=== PATIENT | male | born 1935 | race Asian ===

== ENCOUNTER 2016-10-08 15:47 | Inpatient (IN) | payer MEDICARE, OTHER ==
[~2016-10-08] VITALS: Ht 167.6 cm; Wt 62.1 kg
[2016-10-08 16:13] LABS: BASOPHILS % (AUTO) 0.2 % (0.0-2.0); EOSINOPHILS % (AUTO) 1.9 % (1.0-6.0); HEMATOCRIT 36.5 % (41-53); HEMOGLOBIN 11.6 g/dL (13.5-17.5); LYMPHOCYTES # (AUTO) 1.8 K/uL (1.0-4.8); LYMPHOCYTES % (AUTO) 18.2 % (22.0-44.0); MEAN CORPUSCULAR HEMOGLOBIN 27.6 pg (26.0-34.0); MEAN CORPUSCULAR HGB CONC 31.7 G/dL (31.0-37.0); MEAN CORPUSCULAR VOLUME 87 fL (80-100); MONOCYTES # (AUTO) 0.6 K/uL (0.1-1.0); MONOCYTES % (AUTO) 6.4 % (2.0-9.0); NEUTROPHILS # (AUTO) 7.2 K/uL (1.8-7.7); NEUTROPHILS % (AUTO) 73.3 % (40.0-70.0); PLATELET COUNT (AUTO) 308 K/uL (150-450); RED BLOOD CELL COUNT(AUTO) 4.19 MIL/uL (4.50-5.90); RED CELL DISTRIBUTION WIDTH 14.3 % (11.5-14.5); WHITE BLOOD COUNT (AUTO) 9.8 K/uL (4.5-11.0)
[2016-10-08 16:23] LABS: CALCIUM, TOTAL 7.7 mg/dL (8.8-10.5); CREATININE 1.32 mg/dL (0.60-1.30); POTASSIUM 4.3 mmol/L (3.5-5.1)
[2016-10-08 16:29] LABS: ALBUMIN 3.5 g/dL (3.4-5.0); BILIRUBIN,TOTAL 0.7 mg/dL (0.1-1.0); TOTAL PROTEIN, SERUM 7.3 g/dL (6.4-8.2)
[2016-10-08 18:37] LABS: GLUCOSE, URINE (UA) 250 mg/dL (NEGATIVE); KETONES,URINE 40 mg/dL (NEGATIVE); LEUKOCYTE ESTERASE ,URINE LARGE (NEGATIVE); OCCULT BLOOD,URINE LARGE (NEGATIVE); PROTEIN,URINE SEE CONFIRM (NEGATIVE)
[2016-10-08 18:47] LABS: ADD UA MICROSCOPIC YES; APPEARANCE,URINE BLOODY (CLEAR)
[2016-10-08 18:55] LABS: RBC,URINE Full Field /HPF (0-2); SULFOSALICYLIC ACID,URINE 4+ (Negative)
[2016-10-08] MEDS ORDERED: CefTRIAXone SODIUM 1 GM/VIAL IM ONE (19:15)
[2016-10-08] MEDS ORDERED: LIDOCAINE HCL/PF 1% 2 ML VIAL IM ONE (19:15)
[2016-10-08] MEDS ORDERED: TAMSULOSIN HCL 0.4 MG CAPSULE PO ONE (19:30)
[2016-10-08] MEDS ORDERED: CIPROFLOXACIN HCL 250 MG TABLET PO ONE (21:00)
[2016-10-08] MEDS ORDERED: SODIUM CHLORIDE 0.9% 1,000 ML IV ONE (21:23)
[2016-10-08] MEDS ORDERED: SODIUM CHLORIDE 0.9% 500 ML IV ONE (21:30)
[2016-10-08 21:54] LABS: INR 1.1 (0.9-1.1); PROTHROMBIN TIME 11.4 SEC (9.4-11.6)
[2016-10-08] MEDS ORDERED: ZOLPIDEM TARTRATE 5 MG TABLET PO PRN (23:00)
[2016-10-08] MEDS ORDERED: ACETAMINOPHEN 325 MG TABLET PO PRN (23:00)
[2016-10-08] MEDS ORDERED: OxyCODONE HCL/ACETAMINOPHEN 5-325 MG TABLET PO PRN (23:00)
[2016-10-08] MEDS ORDERED: ALBUTEROL SULFATE 2.5 MG/0.5 ML NEB SOLUTION NEB PRN (23:00)
[2016-10-08] MEDS ORDERED: ONDANSETRON HCL 4 MG/2 ML VIAL IVP PRN (23:00)
[2016-10-08] MEDS ORDERED: IPRATROPIUM BROMIDE 0.5 MG/2.5 ML NEB SOLUTION NEB PRN (23:00)
[2016-10-08] MEDS ORDERED: MORPHINE SULFATE 4 MG/ML SYRINGE IVP PRN (23:00)
[2016-10-08 23:04] VITALS: BP 126/79
[2016-10-08] MEDS ORDERED: PNEUMOCOCCAL VACCINE POLYVALENT 0.5 ML VIAL [PPSV23] IM ONE (23:45)
[2016-10-09] VITALS (7 sets, daily range): BP systolic 106–158; BP diastolic 61–77
[2016-10-09] MEDS: SODIUM CHLORIDE 0.9% 1,000 ML IV SCH ×3 (01:00→19:51)
[2016-10-09 06:43] LABS: EOSINOPHILS % (AUTO) 0.2 % (1.0-6.0); HEMOGLOBIN 9.3 g/dL (13.5-17.5); LYMPHOCYTES # (AUTO) 1.1 K/uL (1.0-4.8); LYMPHOCYTES % (AUTO) 9.1 % (22.0-44.0); MEAN CORPUSCULAR HEMOGLOBIN 27.6 pg (26.0-34.0); MEAN CORPUSCULAR VOLUME 86 fL (80-100); MONOCYTES # (AUTO) 0.7 K/uL (0.1-1.0); MONOCYTES % (AUTO) 5.4 % (2.0-9.0); NEUTROPHILS # (AUTO) 10.7 K/uL (1.8-7.7); PLATELET COUNT (AUTO) 264 K/uL (150-450); RED BLOOD CELL COUNT(AUTO) 3.36 MIL/uL (4.50-5.90); RED CELL DISTRIBUTION WIDTH 14.1 % (11.5-14.5); WHITE BLOOD COUNT (AUTO) 12.5 K/uL (4.5-11.0)
[2016-10-09 06:46] LABS: NEUTROPHILS % (AUTO) 85.3 % (40.0-70.0)
[2016-10-09 07:25] LABS: ALBUMIN 2.8 g/dL (3.4-5.0); BILIRUBIN,TOTAL 0.7 mg/dL (0.1-1.0); CALCIUM, TOTAL 6.8 mg/dL (8.8-10.5); CREATININE 1.37 mg/dL (0.60-1.30); MAGNESIUM 1.5 mg/dL (1.80-2.40); PHOSPHORUS 3.8 mg/dL (2.5-4.9); POTASSIUM 4.4 mmol/L (3.5-5.1); TOTAL PROTEIN, SERUM 5.7 g/dL (6.4-8.2)
[2016-10-09 07:53] LABS: PROSTATE SPECIFIC ANTIGEN 26.93 ng/mL (0.00-4.00)
[2016-10-09] MEDS: CefTRIAXone 1 GM/DEXTROSE 50 ML IV SCH (08:37)
[2016-10-09] MEDS: TAMSULOSIN HCL 0.4 MG CAPSULE PO SCH (08:42)
[2016-10-09] MEDS: PANTOPRAZOLE SODIUM 40 MG/VIAL IVP SCH (08:42)
[2016-10-09] MEDS ORDERED: MAGNESIUM SULFATE 1 GM in DEXTROSE 5%-WATER 50 ML IV ONE (13:00)
[2016-10-09] MEDS ORDERED: OPIUM/BELLADONNA ALK 60 MG-16.2 MG RECTAL SUPPOSITORY PR PRN (16:30)
[2016-10-09] MEDS ORDERED: SODIUM CHLORIDE 0.9% 100 ML ONE (16:44)
[2016-10-09] MEDS ORDERED: IOVERSOL 350 MG/ML 100 ML VIAL ONE (16:44)
[2016-10-09 20:00] LABS: BASOPHILS % (AUTO) 0.1 % (0.0-2.0); EOSINOPHILS % (AUTO) 0.2 % (1.0-6.0); HEMATOCRIT 23.8 % (41-53); HEMOGLOBIN 7.6 g/dL (13.5-17.5); LYMPHOCYTES # (AUTO) 0.8 K/uL (1.0-4.8); LYMPHOCYTES % (AUTO) 6.8 % (22.0-44.0); MEAN CORPUSCULAR HEMOGLOBIN 27.4 pg (26.0-34.0); MEAN CORPUSCULAR HGB CONC 31.8 G/dL (31.0-37.0); MEAN CORPUSCULAR VOLUME 86 fL (80-100); MONOCYTES # (AUTO) 0.8 K/uL (0.1-1.0); MONOCYTES % (AUTO) 6.2 % (2.0-9.0); NEUTROPHILS # (AUTO) 10.7 K/uL (1.8-7.7); NEUTROPHILS % (AUTO) 86.7 % (40.0-70.0); PLATELET COUNT (AUTO) 230 K/uL (150-450); RED BLOOD CELL COUNT(AUTO) 2.77 MIL/uL (4.50-5.90); RED CELL DISTRIBUTION WIDTH 14.4 % (11.5-14.5); WHITE BLOOD COUNT (AUTO) 12.3 K/uL (4.5-11.0)
[2016-10-10] VITALS (24 sets, daily range): BP systolic 90–166; BP diastolic 44–95
[2016-10-10] MEDS ORDERED: FentaNYL CITRATE-PF 100 MCG/2 ML VIAL IVP ONE (00:43)
[2016-10-10] MEDS ORDERED: PHENYLEPHRINE HCL 10 MG/ML VIAL IVP ONE (00:43)
[2016-10-10] MEDS ORDERED: LIDOCAINE HCL/PF 2% 5 ML VIAL IM ONE (00:43)
[2016-10-10] MEDS ORDERED: ONDANSETRON HCL 4 MG/2 ML VIAL IVP ONE (00:43)
[2016-10-10] MEDS ORDERED: MIDAZOLAM HCL 2 MG/2 ML VIAL IVP ONE (00:43)
[2016-10-10] MEDS ORDERED: DiphenhydrAMINE HCL 50 MG/ML VIAL IVP ONE (00:43)
[2016-10-10] MEDS: SODIUM CHLORIDE 0.9% 1,000 ML IV SCH ×2 (05:06→15:14)
[2016-10-10] MEDS ORDERED: SODIUM CHLORIDE 0.9% IRRIG BTL 1,000 ML IRRIG ONE (05:55)
[2016-10-10 07:30] LABS: EOSINOPHILS % (AUTO) 0.5 % (1.0-6.0); HEMATOCRIT 28.7 % (41-53); HEMOGLOBIN 9.3 g/dL (13.5-17.5); LYMPHOCYTES % (AUTO) 7.4 % (22.0-44.0); MEAN CORPUSCULAR HEMOGLOBIN 27.9 pg (26.0-34.0); MEAN CORPUSCULAR HGB CONC 32.3 G/dL (31.0-37.0); MEAN CORPUSCULAR VOLUME 87 fL (80-100); MONOCYTES % (AUTO) 7.8 % (2.0-9.0); NEUTROPHILS # (AUTO) 11.1 K/uL (1.8-7.7); NEUTROPHILS % (AUTO) 84.3 % (40.0-70.0); PLATELET COUNT (AUTO) 192 K/uL (150-450); RED BLOOD CELL COUNT(AUTO) 3.31 MIL/uL (4.50-5.90); RED CELL DISTRIBUTION WIDTH 13.7 % (11.5-14.5); WHITE BLOOD COUNT (AUTO) 13.2 K/uL (4.5-11.0)
[2016-10-10 07:43] LABS: ALBUMIN 2.5 g/dL (3.4-5.0); BILIRUBIN,TOTAL 1.3 mg/dL (0.1-1.0); CREATININE 2.53 mg/dL (0.60-1.30); POTASSIUM 4.7 mmol/L (3.5-5.1); TOTAL PROTEIN, SERUM 5.3 g/dL (6.4-8.2)
[2016-10-10] MEDS: TAMSULOSIN HCL 0.4 MG CAPSULE PO SCH (08:37)
[2016-10-10] MEDS: PANTOPRAZOLE SODIUM 40 MG/VIAL IVP SCH (08:37)
[2016-10-10] MEDS: CefTRIAXone 1 GM/DEXTROSE 50 ML IV SCH (08:37)
[2016-10-10] MEDS ORDERED: WATER FOR IRRIGATION STERILE IRRIG ONE ×2 (09:24→10:32)
[2016-10-10] MEDS ORDERED: SODIUM CL IRRIG SOLN BAG 3,000 ML IRRIG ONE (10:32)
[2016-10-10] MEDS ORDERED: SODIUM CHLORIDE 0.9% 1,000 ML IV ONE ×2 (16:00→19:13)
[2016-10-10] MEDS ORDERED: MEPERIDINE-PF 25 MG/ML SYRINGE IVP PRN (17:45)
[2016-10-10] MEDS ORDERED: HYDROmorphone 2 MG/ML SYRINGE IVP PRN (17:45)
[2016-10-10] MEDS ORDERED: FentaNYL CITRATE-PF 100 MCG/2 ML VIAL IVP PRN (17:45)
[2016-10-11] MEDS: OXYGEN THERAPY IH SCH ×3 (02:22→20:21)
[2016-10-11] MEDS: SODIUM CHLORIDE 0.9% 1,000 ML IV SCH ×3 (02:23→20:21)
[2016-10-11 04:56] VITALS: BP 96/54
[2016-10-11 07:21] VITALS: BP 90/50
[2016-10-11] MEDS: PANTOPRAZOLE SODIUM 40 MG/VIAL IVP SCH (08:09)
[2016-10-11] MEDS: CefTRIAXone 1 GM/DEXTROSE 50 ML IV SCH (08:12)
[2016-10-11 11:24] VITALS: BP 108/55
[2016-10-11 15:09] VITALS: BP 123/69
[2016-10-11 19:39] VITALS: BP 119/58
[2016-10-11 23:28] VITALS: BP 126/64
[2016-10-12] VITALS (24 sets, daily range): BP systolic 117–152; BP diastolic 58–81
[2016-10-12] MEDS: SODIUM CHLORIDE 0.9% 1,000 ML IV SCH ×2 (05:52→16:39)
[2016-10-12 06:16] LABS: EOSINOPHILS % (AUTO) 8.4 % (1.0-6.0); HEMATOCRIT 21.7 % (41-53); LYMPHOCYTES # (AUTO) 1.1 K/uL (1.0-4.8); LYMPHOCYTES % (AUTO) 8.3 % (22.0-44.0); MEAN CORPUSCULAR HEMOGLOBIN 28.5 pg (26.0-34.0); MEAN CORPUSCULAR VOLUME 89 fL (80-100); MONOCYTES # (AUTO) 1.1 K/uL (0.1-1.0); MONOCYTES % (AUTO) 8.4 % (2.0-9.0); NEUTROPHILS # (AUTO) 9.7 K/uL (1.8-7.7); NEUTROPHILS % (AUTO) 74.9 % (40.0-70.0); PLATELET COUNT (AUTO) 168 K/uL (150-450); RED BLOOD CELL COUNT(AUTO) 2.44 MIL/uL (4.50-5.90)
[2016-10-12 06:34] LABS: ALBUMIN 1.8 g/dL (3.4-5.0); BILIRUBIN,TOTAL 0.3 mg/dL (0.1-1.0); CALCIUM, TOTAL 6.6 mg/dL (8.8-10.5); CREATININE 1.22 mg/dL (0.60-1.30); POTASSIUM 4.4 mmol/L (3.5-5.1); TOTAL PROTEIN, SERUM 4.3 g/dL (6.4-8.2)
[2016-10-12] MEDS ORDERED: SODIUM CHLORIDE 0.9% 250 ML IV ONE (08:32)
[2016-10-12] MEDS: CefTRIAXone 1 GM/DEXTROSE 50 ML IV SCH (08:54)
[2016-10-12] MEDS: PANTOPRAZOLE SODIUM 40 MG/VIAL IVP SCH (08:54)
[2016-10-12] MEDS: OXYGEN THERAPY IH SCH ×2 (09:03→20:26)
[2016-10-12] MEDS ORDERED: 0.9% SODIUM CHLORIDE 10 ML SYRINGE IVP PRN (15:45)
[2016-10-12] MEDS ORDERED: SODIUM CHLORIDE 0.9% 100 ML ONE (15:53)
[2016-10-13] VITALS (7 sets, daily range): BP systolic 128–143; BP diastolic 69–83
[2016-10-13] MEDS: SODIUM CHLORIDE 0.9% 1,000 ML IV SCH ×3 (02:51→22:59)
[2016-10-13 06:41] LABS: ALANINE AMINOTRANSFERASE 11 U/L (12-78); ALBUMIN 1.8 g/dL (3.4-5.0); ANION GAP 7 mmol/L (8-16); ASPARTATE AMINOTRANSFERASE 16 U/L (15-37); BILIRUBIN,TOTAL 0.4 mg/dL (0.1-1.0); CALCIUM, TOTAL 7.3 mg/dL (8.8-10.5); CARBON DIOXIDE 23 mmol/L (22-29); CHLORIDE 112 mmol/L (98-107); CREATININE 1.03 mg/dL (0.60-1.30); GLOMERULAR FILTR. RATE CALC > 60 mL/min (>60); POTASSIUM 4.5 mmol/L (3.5-5.1); SODIUM SERUM 142 mmol/L (136-145); TOTAL PROTEIN, SERUM 4.7 g/dL (6.4-8.2); UREA NITROGEN, BLOOD 12 mg/dL (7-18)
[2016-10-13 06:45] LABS: BASOPHILS # (AUTO) 0.03 K/uL (0.00-0.20); BASOPHILS % (AUTO) 0.2 % (0.0-2.0); EOSINOPHILS # (AUTO) 1.03 K/uL (0.00-0.70); EOSINOPHILS % (AUTO) 8.98 % (1.0-6.0); HEMATOCRIT 29.3 % (41-53); HEMOGLOBIN 9.8 g/dL (13.5-17.5); LYMPHOCYTES # (AUTO) 1.2 K/uL (1.0-4.8); LYMPHOCYTES % (AUTO) 10.3 % (22.0-44.0); MEAN CORPUSCULAR HEMOGLOBIN 29.3 pg (26.0-34.0); MEAN CORPUSCULAR HGB CONC 33.5 G/dL (31.0-37.0); MEAN CORPUSCULAR VOLUME 87 fL (80-100); MONOCYTES # (AUTO) 0.8 K/uL (0.1-1.0); MONOCYTES % (AUTO) 6.9 % (2.0-9.0); NEUTROPHILS # (AUTO) 8.4 K/uL (1.8-7.7); NEUTROPHILS % (AUTO) 73.6 % (40.0-70.0); PLATELET COUNT (AUTO) 191 K/uL (150-450); RED BLOOD CELL COUNT(AUTO) 3.35 MIL/uL (4.50-5.90); RED CELL DISTRIBUTION WIDTH 15.1 % (11.5-14.5); WHITE BLOOD COUNT (AUTO) 11.4 K/uL (4.5-11.0)
[2016-10-13] MEDS: OXYGEN THERAPY IH SCH ×2 (08:24→20:58)
[2016-10-13] MEDS: PANTOPRAZOLE SODIUM 40 MG/VIAL IVP SCH (08:25)
[2016-10-13] MEDS: CefTRIAXone 1 GM/DEXTROSE 50 ML IV SCH (08:25)
[2016-10-14 04:18] VITALS: BP 136/68
[2016-10-14 06:18] LABS: BASOPHILS % (AUTO) 0.2 % (0.0-2.0); EOSINOPHILS % (AUTO) 10.6 % (1.0-6.0); HEMATOCRIT 30.3 % (41-53); HEMOGLOBIN 9.9 g/dL (13.5-17.5); LYMPHOCYTES # (AUTO) 0.9 K/uL (1.0-4.8); LYMPHOCYTES % (AUTO) 9.5 % (22.0-44.0); MEAN CORPUSCULAR HEMOGLOBIN 28.8 pg (26.0-34.0); MEAN CORPUSCULAR HGB CONC 32.5 G/dL (31.0-37.0); MEAN CORPUSCULAR VOLUME 89 fL (80-100); MONOCYTES # (AUTO) 0.8 K/uL (0.1-1.0); MONOCYTES % (AUTO) 8.1 % (2.0-9.0); NEUTROPHILS # (AUTO) 6.9 K/uL (1.8-7.7); NEUTROPHILS % (AUTO) 71.6 % (40.0-70.0); PLATELET COUNT (AUTO) 241 K/uL (150-450); RED BLOOD CELL COUNT(AUTO) 3.42 MIL/uL (4.50-5.90); WHITE BLOOD COUNT (AUTO) 9.6 K/uL (4.5-11.0)
[2016-10-14 06:39] LABS: ALANINE AMINOTRANSFERASE 13 U/L (12-78); ALBUMIN 1.9 g/dL (3.4-5.0); ANION GAP 5 mmol/L (8-16); ASPARTATE AMINOTRANSFERASE 17 U/L (15-37); BILIRUBIN,TOTAL 0.4 mg/dL (0.1-1.0); CALCIUM, TOTAL 7.6 mg/dL (8.8-10.5); CARBON DIOXIDE 26 mmol/L (22-29); CHLORIDE 111 mmol/L (98-107); CREATININE 1.02 mg/dL (0.60-1.30); GLOMERULAR FILTR. RATE CALC > 60 mL/min (>60); POTASSIUM 4.9 mmol/L (3.5-5.1); SODIUM SERUM 142 mmol/L (136-145); TOTAL PROTEIN, SERUM 4.8 g/dL (6.4-8.2); UREA NITROGEN, BLOOD 10 mg/dL (7-18)
[2016-10-14 07:32] VITALS: BP 130/65
[2016-10-14] MEDS: PANTOPRAZOLE SODIUM 40 MG/VIAL IVP SCH (09:00)
[2016-10-14] MEDS: CefTRIAXone 1 GM/DEXTROSE 50 ML IV SCH (09:00)
[2016-10-14] MEDS: SODIUM CHLORIDE 0.9% 1,000 ML IV SCH ×2 (09:02→20:02)
[2016-10-14 11:53] VITALS: BP 144/71
[2016-10-14 15:38] VITALS: BP 141/63
[2016-10-14 19:16] VITALS: BP 128/66
[2016-10-14 23:39] VITALS: BP 131/72
[2016-10-15 04:55] VITALS: BP 131/78
[2016-10-15] MEDS: SODIUM CHLORIDE 0.9% 1,000 ML IV SCH ×2 (06:22→20:02)
[2016-10-15 06:28] LABS: BASOPHILS % (AUTO) 0.2 % (0.0-2.0); EOSINOPHILS % (AUTO) 11.4 % (1.0-6.0); HEMATOCRIT 31.4 % (41-53); HEMOGLOBIN 10.1 g/dL (13.5-17.5); LYMPHOCYTES # (AUTO) 0.9 K/uL (1.0-4.8); LYMPHOCYTES % (AUTO) 10.5 % (22.0-44.0); MEAN CORPUSCULAR HEMOGLOBIN 28.4 pg (26.0-34.0); MEAN CORPUSCULAR HGB CONC 32.1 G/dL (31.0-37.0); MEAN CORPUSCULAR VOLUME 88 fL (80-100); MONOCYTES # (AUTO) 0.8 K/uL (0.1-1.0); MONOCYTES % (AUTO) 9.6 % (2.0-9.0); NEUTROPHILS % (AUTO) 68.3 % (40.0-70.0); PLATELET COUNT (AUTO) 289 K/uL (150-450); RED BLOOD CELL COUNT(AUTO) 3.55 MIL/uL (4.50-5.90); RED CELL DISTRIBUTION WIDTH 14.5 % (11.5-14.5); WHITE BLOOD COUNT (AUTO) 8.8 K/uL (4.5-11.0)
[2016-10-15 07:07] VITALS: BP 133/79
[2016-10-15 07:09] LABS: ALANINE AMINOTRANSFERASE 15 U/L (12-78); ALBUMIN 1.8 g/dL (3.4-5.0); ANION GAP 7 mmol/L (8-16); ASPARTATE AMINOTRANSFERASE 17 U/L (15-37); BILIRUBIN,TOTAL 0.3 mg/dL (0.1-1.0); CALCIUM, TOTAL 7.4 mg/dL (8.8-10.5); CARBON DIOXIDE 26 mmol/L (22-29); CHLORIDE 111 mmol/L (98-107); GLOMERULAR FILTR. RATE CALC > 60 mL/min (>60); POTASSIUM 4.4 mmol/L (3.5-5.1); SODIUM SERUM 144 mmol/L (136-145); TOTAL PROTEIN, SERUM 4.9 g/dL (6.4-8.2); UREA NITROGEN, BLOOD 8 mg/dL (7-18)
[2016-10-15] MEDS: CefTRIAXone 1 GM/DEXTROSE 50 ML IV SCH (08:36)
[2016-10-15] MEDS: PANTOPRAZOLE SODIUM 40 MG/VIAL IVP SCH (08:36)
[2016-10-15 11:35] VITALS: BP 137/78
[2016-10-15 15:36] VITALS: BP 123/65
[2016-10-15 19:48] VITALS: BP 134/69
[2016-10-15] MEDS: OXYGEN THERAPY IH SCH ×2 (20:05→20:07)
[2016-10-15 23:49] VITALS: BP 141/77
[2016-10-16 05:12] VITALS: BP 136/71
[2016-10-16] MEDS: SODIUM CHLORIDE 0.9% 1,000 ML IV SCH (05:46)
[2016-10-16 06:55] LABS: BASOPHILS % (AUTO) 0.1 % (0.0-2.0); EOSINOPHILS % (AUTO) 11.5 % (1.0-6.0); HEMOGLOBIN 10.4 g/dL (13.5-17.5); LYMPHOCYTES # (AUTO) 1.4 K/uL (1.0-4.8); LYMPHOCYTES % (AUTO) 14.5 % (22.0-44.0); MEAN CORPUSCULAR HEMOGLOBIN 28.6 pg (26.0-34.0); MEAN CORPUSCULAR HGB CONC 32.4 G/dL (31.0-37.0); MEAN CORPUSCULAR VOLUME 88 fL (80-100); MONOCYTES # (AUTO) 0.9 K/uL (0.1-1.0); MONOCYTES % (AUTO) 9.4 % (2.0-9.0); NEUTROPHILS # (AUTO) 6.4 K/uL (1.8-7.7); NEUTROPHILS % (AUTO) 64.5 % (40.0-70.0); PLATELET COUNT (AUTO) 326 K/uL (150-450); RED BLOOD CELL COUNT(AUTO) 3.63 MIL/uL (4.50-5.90); RED CELL DISTRIBUTION WIDTH 14.5 % (11.5-14.5); WHITE BLOOD COUNT (AUTO) 9.9 K/uL (4.5-11.0)
[2016-10-16 07:30] LABS: ALANINE AMINOTRANSFERASE 15 U/L (12-78); ALBUMIN 1.9 g/dL (3.4-5.0); ANION GAP 8 mmol/L (8-16); ASPARTATE AMINOTRANSFERASE 16 U/L (15-37); BILIRUBIN,TOTAL 0.3 mg/dL (0.1-1.0); CALCIUM, TOTAL 7.5 mg/dL (8.8-10.5); CARBON DIOXIDE 25 mmol/L (22-29); CHLORIDE 111 mmol/L (98-107); CREATININE 0.83 mg/dL (0.60-1.30); GLOMERULAR FILTR. RATE CALC > 60 mL/min (>60); POTASSIUM 4.2 mmol/L (3.5-5.1); SODIUM SERUM 144 mmol/L (136-145); TOTAL PROTEIN, SERUM 5.2 g/dL (6.4-8.2); UREA NITROGEN, BLOOD 9 mg/dL (7-18)
[2016-10-16] MEDS: OXYGEN THERAPY IH SCH (08:00)
[2016-10-16 08:09] VITALS: BP 137/69
[2016-10-16] MEDS: CefTRIAXone 1 GM/DEXTROSE 50 ML IV SCH (08:59)
[2016-10-16] MEDS: PANTOPRAZOLE SODIUM 40 MG/VIAL IVP SCH (08:59)
[2016-10-16 11:47] VITALS: BP 130/91
[2016-10-16 16:35] VITALS: BP 139/67
[2016-10-16] MEDS ORDERED: CIPR-278 PO ×2 (16:53→16:54)
[2016-10-18] MEDS ORDERED: SODIUM CL IRRIG SOLN BAG 3,000 ML IRRIG ONE (16:22)
== END 2016-10-16 18:20 | disposition home or self-care (01) | DRG 713 ==
LOC: EMS 15:48 → 5N 21:38 → 6N 10-13 05:40
PROVIDERS: ADMIT Internal Medicine; ATTEND Internal Medicine
PROC: 30233N1 Transfusion of Nonautologous Red Blood Cells into Peripheral Vein, Percutaneous Approach (ICD-10-PCS; 2016-10-09)
PROC: 0VB08ZZ Excision of Prostate, Via Natural or Artificial Opening Endoscopic (ICD-10-PCS; 2016-10-10)
PROC: 0TCB8ZZ Extirpation of Matter from Bladder, Via Natural or Artificial Opening Endoscopic (ICD-10-PCS; principal; 2016-10-10 17:15)
DX: C61 Malignant neoplasm of prostate (principal); N17.9 Acute kidney failure, unspecified; N39.0 Urinary tract infection, site not specified; N13.30 Unspecified hydronephrosis; N13.8 Other obstructive and reflux uropathy; E83.51 Hypocalcemia; R55 Syncope and collapse; N40.1 Benign prostatic hyperplasia with lower urinary tract symptoms; D64.9 Anemia, unspecified; F17.200 Nicotine dependence, unspecified, uncomplicated; I10 Essential (primary) hypertension; R33.8 Other retention of urine; E86.1 Hypovolemia; F10.20 Alcohol dependence, uncomplicated; R31.0 Gross hematuria; F45.8 Other somatoform disorders; Z71.6 Tobacco abuse counseling; Z71.41 Alcohol abuse counseling and surveillance of alcoholic
CPT/HCPCS: 51702; 71260; 72193; 74160; 83735; 84100; 84153; 86850; 86900; 86901; 86920; 87086; 88307; 93005; 96372; 99285; 99406; C9113; J0696; J1200; J2250; J2270; J2370; J2405; J3010; J3475; J3490; J7030; J7050; J7060; P9016

== ENCOUNTER 2022-04-19 20:10 | Emergency (ER) | payer MEDICARE, OTHER, MEDICAID ==
[~2022-04-19] VITALS: Ht 162.6 cm; Wt 62.0 kg
[~2022-04-19 20:10] MED LIST: CIPR-278 PO
[2022-04-19] MEDS ORDERED: IBUPROFEN 600 MG TABLET PO ONE (20:45)
[2022-04-19 21:12] LABS: COVID AG,FIA SOURCE NASOPHARYNGEAL
[2022-04-19 21:33] LABS: RAPID GROUP A STREP NEGATIVE (NEGATIVE)
[2022-04-19 21:38] LABS: INFLUENZA TYPE A NEGATIVE FOR TYPE A (NEGATIVE); INFLUENZA TYPE B NEGATIVE FOR TYPE B (NEGATIVE)
[2022-04-19 21:52] VITALS: BP 142/57
== END 2022-04-19 22:32 | disposition home or self-care (01) ==
LOC: EMS 20:12
DX: B34.9 Viral infection, unspecified (principal); F10.20 Alcohol dependence, uncomplicated; N40.0 Benign prostatic hyperplasia without lower urinary tract symptoms; F17.210 Nicotine dependence, cigarettes, uncomplicated; Z20.822 Contact with and (suspected) exposure to COVID-19
CPT/HCPCS: 71045; 87430; 87804; 99284; 36415-L1; 36415-TC

== ENCOUNTER 2022-11-29 10:42 | Day surgery (SDC) | payer MEDICARE, OTHER ==
[~2022-11-29 10:42] MED LIST changes: +AMLO-257 PO; +AMOX1TAB16 PO; -CIPR-278 PO
[2022-11-29] MEDS ORDERED: PROPOFOL 1% 20 ML VIAL IVP ONE (10:43)
[2022-11-29] MEDS ORDERED: ONDANSETRON HCL 4 MG/2 ML VIAL IVP ONE (10:43)
[2022-11-29] MEDS ORDERED: FentaNYL CITRATE PF 100 MCG/2 ML VIAL IVP ONE (10:43)
[2022-11-29] MEDS ORDERED: DEXAMETHASONE SOD PHOS 4 MG/ML VIAL IVP ONE (10:43)
[2022-11-29] MEDS ORDERED: ROCURONIUM BROMIDE 10 MG/ML 5 ML VIAL IVP ONE (10:43)
[2022-11-29] MEDS ORDERED: LIDOCAINE/PF 2% 5 ML VIAL IM ONE (10:43)
[2022-11-29] MEDS ORDERED: 0.9% SODIUM CHLORIDE 10 ML VIAL IVP ONE (10:43)
[2022-11-29] MEDS ORDERED: SODIUM CHLORIDE 0.9% 1,000 ML ONE (11:00)
[2022-11-29] MEDS ORDERED: SODIUM CHLORIDE 0.9% 1,000 ML IV ONE (13:00)
[2022-11-29] MEDS ORDERED: IOTHALAMATE MEGLUMINE 600 MG/ML 50 ML VIAL IVP ONE (14:52)
== END 2022-11-29 16:00 | disposition home or self-care (01) ==
LOC: SURGERY 10:42
PROVIDERS: ATTEND Internal Medicine Gastroenterology
DX: K80.50 Calculus of bile duct without cholangitis or cholecystitis without obstruction (principal); Z72.89 Other problems related to lifestyle; Z79.899 Other long term (current) drug therapy
CPT/HCPCS: 43265; 43275; 88300; C1769 ×2; J2704; J1100; J3010; Q9961; J3490 ×2; J2405; J7030

== ENCOUNTER 2022-11-30 17:08 | Inpatient (IN) | payer MEDICARE, OTHER ==
[~2022-11-30] VITALS: Ht 167.6 cm; Wt 62.7 kg
[2022-11-30 18:02] LABS: HEMATOCRIT 44.1 % (41-53); HEMOGLOBIN 13.9 g/dL (13.5-17.5); MEAN CORPUSCULAR HEMOGLOBIN 27.5 pg (26.0-34.0); MEAN CORPUSCULAR HGB CONC 31.6 G/dL (31.0-37.0); MEAN CORPUSCULAR VOLUME 87 fL (80-100); PLATELET COUNT (AUTO) 266 K/uL (150-450); RED BLOOD CELL COUNT(AUTO) 5.07 MIL/uL (4.50-5.90); RED CELL DISTRIBUTION WIDTH 13.6 % (11.5-14.5)
[2022-11-30 18:10] LABS: ANION GAP 12 mmol/L (8-16); CALCIUM, TOTAL 8.1 mg/dL (8.8-10.5); CARBON DIOXIDE 21 mmol/L (22-29); CHLORIDE 103 mmol/L (98-107); CREATININE 1.43 mg/dL (0.60-1.30); GLOMERULAR FILTR. RATE CALC 47 mL/min (>60); GLUCOSE,RANDOM 154 mg/dL (70-110); SODIUM SERUM 136 mmol/L (136-145)
[2022-11-30] MEDS ORDERED: 0.9% SODIUM CHLORIDE 10 ML SYRINGE IVP PRN (18:15)
[2022-11-30] MEDS ORDERED: SODIUM CHLORIDE 0.9% 1,350 ML IV ONE (18:15)
[2022-11-30 18:21] LABS: LACTIC ACID 3.6 mmol/L (0.4-2.0)
[2022-11-30 18:23] LABS: ALANINE AMINOTRANSFERASE 13 U/L (12-78); ALBUMIN 3.2 g/dL (3.4-5.0); ALKALINE PHOSPHATASE 54 U/L (46-116); ASPARTATE AMINOTRANSFERASE 18 U/L (15-37); BILIRUBIN,TOTAL 1.4 mg/dL (0.1-1.0); TOTAL PROTEIN, SERUM 6.8 g/dL (6.4-8.2)
[2022-11-30 18:25] LABS: INR 1.1 (0.9-1.1); PROTHROMBIN TIME 11.4 SEC (9.4-11.6)
[2022-11-30 18:29] LABS: BAND NEUTROPHILS % (MANUAL) 26 % (0-5); LYMPHOCYTES % (MANUAL) 4 % (22-44); MONOCYTES % (MANUAL) 3 % (2-9); SEGMENTED NEUTROPHILS % 67 % (40-70)
[2022-11-30 18:30] LABS: LIPASE 4857 U/L (73-393)
[2022-11-30] MEDS ORDERED: ACETAMINOPHEN 325 MG TABLET PO PRN (19:00)
[2022-11-30] MEDS ORDERED: ONDANSETRON HCL 4 MG/2 ML VIAL IVP PRN (19:00)
[2022-11-30] MEDS ORDERED: PIPERACILLIN SODIUM/TAZOBACTAM 2.25 GM in DEXTROSE 5%-WATER 50 ML IV SCH (19:00)
[2022-11-30 19:04] LABS: COVID AG,FIA SOURCE NASOPHARYNGEAL
[2022-11-30] MEDS: SODIUM CHLORIDE 0.9% 1,000 ML IV SCH (19:44)
[2022-11-30] MEDS: MORPHINE SULFATE 2 MG/ML SYRINGE IVP PRN (20:14)
[2022-11-30] MEDS: DOCUSATE SODIUM 100 MG CAPSULE PO SCH (21:00)
[2022-11-30 21:02] LABS: APPEARANCE,URINE CLEAR (CLEAR); BILIRUBIN,URINE NEGATIVE (NEGATIVE); GLUCOSE, URINE (UA) NEGATIVE (NEGATIVE); KETONES,URINE NEGATIVE (NEGATIVE); LEUKOCYTE ESTERASE ,URINE NEGATIVE (NEGATIVE); NITRATE,URINE NEGATIVE (NEGATIVE); OCCULT BLOOD,URINE TRACE (NEGATIVE); PH,URINE 5.5 (5.0-8.0); PROTEIN,URINE 30-70 mg/dL (NEGATIVE); SPECIFIC GRAVITIY, URINE 1.025 (1.003-1.030); UROBILINOGEN,URINE <=1.0 mg/dL (<=1.0)
[2022-11-30 21:11] LABS: BACTERIA,URINE None Seen /HPF (None Seen); RBC,URINE 0-2 /HPF (0-2); WBC,URINE 0-2 /HPF (0-5)
[2022-11-30] MEDS ORDERED: HYDROmorphone HCL 2 MG/ML SYRINGE IVP ONE (22:15)
[2022-11-30] MEDS: HEPARIN SODIUM,PORCINE 5,000 UNITS/ML VIAL SQ SCH (23:02)
[2022-11-30] MEDS ORDERED: MEBROFENIN TC99M/MCL ISOTOPE 1 EA INJ INJ ONE (23:55)
[2022-12-01] MEDS: PIPERACILLIN SODIUM/TAZOBACTAM 2.25 GM in DEXTROSE 5%-WATER 50 ML IV SCH ×4 (01:16→18:25)
[2022-12-01] MEDS: SODIUM CHLORIDE 0.9% 1,000 ML IV SCH ×3 (01:32→16:45)
[2022-12-01] MEDS ORDERED: ACETAMINOPHEN 1000 MG/ISO-OSM 100 ML IV ONE (03:00)
[2022-12-01 04:51] LABS: HEMATOCRIT 39.8 % (41-53); HEMOGLOBIN 12.9 g/dL (13.5-17.5); MEAN CORPUSCULAR HEMOGLOBIN 28.4 pg (26.0-34.0); MEAN CORPUSCULAR HGB CONC 32.5 G/dL (31.0-37.0); MEAN CORPUSCULAR VOLUME 88 fL (80-100); PLATELET COUNT (AUTO) 211 K/uL (150-450); RED BLOOD CELL COUNT(AUTO) 4.54 MIL/uL (4.50-5.90)
[2022-12-01 05:05] LABS: ALBUMIN 2.3 g/dL (3.4-5.0); BILIRUBIN,TOTAL 1.6 mg/dL (0.1-1.0); CALCIUM, TOTAL 6.8 mg/dL (8.8-10.5); CREATININE 1.38 mg/dL (0.60-1.30); POTASSIUM 4.3 mmol/L (3.5-5.1); TOTAL PROTEIN, SERUM 5.4 g/dL (6.4-8.2)
[2022-12-01 05:19] LABS: BAND NEUTROPHILS % (MANUAL) 22 % (0-5); EOSINOPHILS % (MANUAL) 3 % (1-6); LYMPHOCYTES % (MANUAL) 10 % (22-44); MONOCYTES % (MANUAL) 4 % (2-9); SEGMENTED NEUTROPHILS % 61 % (40-70)
[2022-12-01] MEDS: HEPARIN SODIUM,PORCINE 5,000 UNITS/ML VIAL SQ SCH ×3 (07:04→23:07)
[2022-12-01] MEDS: DOCUSATE SODIUM 100 MG CAPSULE PO SCH ×2 (09:00→20:12)
[2022-12-01] MEDS: PANTOPRAZOLE SODIUM 40 MG/VIAL IVP SCH (10:16)
[2022-12-01 10:20] VITALS: BP 163/96
[2022-12-01] MEDS: MORPHINE SULFATE 2 MG/ML SYRINGE IVP PRN (11:15)
[2022-12-01 11:31] VITALS: BP 161/101
[2022-12-01] MEDS ORDERED: HYDROmorphone HCL 2 MG/ML SYRINGE IM PRN (12:30)
[2022-12-01 15:26] VITALS: BP 144/74
[2022-12-01] MEDS: HYDROmorphone HCL 2 MG/ML SYRINGE IVP PRN ×2 (15:47→20:09)
[2022-12-01] MEDS: OCTREOTIDE ACETATE 100 MCG/ML VIAL IVP SCH ×2 (15:49→20:08)
[2022-12-01 18:53] LABS: ABG BASE EXCESS -9.6 mmol/L (-2.0-3.0); ABG HCO3 17.8 mmol/L (22.0-26.0); ABG METHEMOGLOBIN 0.3 % (0.0-1.5); ABG OXYGEN CONTENT 18.3 mL/dL (15.0-23.0); ABG OXYGEN SATURATION 94.2 % (95.0-98.0); ABG PCO2 32 mmHg (35-45); ABG PH 7.328 (7.35-7.450); PO2, ARTERIAL BG 76.6 mmHg (71.0-79.0); SOURCE, BLOOD GAS ARTERIAL
[2022-12-01 18:54] LABS: ABG A-A DIFF O2 142.4 mmHg (10-20.0); O2 DEVICE,BLOOD GAS NASAL CANNULA (ROOM AIR); SITE, BLOOD GAS RT RADIAL
[2022-12-01 20:13] VITALS: BP 139/81
[2022-12-01] MEDS: ACETAMINOPHEN 650 MG/ISO-OSM 65 ML IV PRN (23:10)
[2022-12-01 23:24] VITALS: BP 133/74
[2022-12-02] MEDS: SODIUM CHLORIDE 0.9% 1,000 ML IV SCH ×3 (00:14→20:28)
[2022-12-02] MEDS: PIPERACILLIN SODIUM/TAZOBACTAM 2.25 GM in DEXTROSE 5%-WATER 50 ML IV SCH ×4 (00:15→22:49)
[2022-12-02] MEDS: HYDROmorphone HCL 2 MG/ML SYRINGE IVP PRN ×3 (04:55→23:42)
[2022-12-02 05:06] VITALS: BP 153/90
[2022-12-02 06:40] LABS: HEMATOCRIT 40.2 % (41-53); HEMOGLOBIN 12.9 g/dL (13.5-17.5); MEAN CORPUSCULAR HEMOGLOBIN 28.6 pg (26.0-34.0); MEAN CORPUSCULAR HGB CONC 32.1 G/dL (31.0-37.0); MEAN CORPUSCULAR VOLUME 89 fL (80-100); RED BLOOD CELL COUNT(AUTO) 4.51 MIL/uL (4.50-5.90); RED CELL DISTRIBUTION WIDTH 14.1 % (11.5-14.5)
[2022-12-02 06:57] LABS: ALBUMIN 2.3 g/dL (3.4-5.0); CALCIUM, TOTAL 7.3 mg/dL (8.8-10.5); CREATININE 1.65 mg/dL (0.60-1.30); POTASSIUM 4.3 mmol/L (3.5-5.1)
[2022-12-02 07:17] LABS: PLATELET COUNT (AUTO) 185 K/uL (150-450)
[2022-12-02 07:24] LABS: BAND NEUTROPHILS % (MANUAL) 63 % (0-5); LYMPHOCYTES % (MANUAL) 15 % (22-44); METAMYELOCYTES % 1 % (0-0); MONOCYTES % (MANUAL) 6 % (2-9); SEGMENTED NEUTROPHILS % 15 % (40-70)
[2022-12-02 07:36] VITALS: BP 128/66
[2022-12-02] MEDS: HEPARIN SODIUM,PORCINE 5,000 UNITS/ML VIAL SQ SCH ×2 (08:00→16:55)
[2022-12-02] MEDS ORDERED: RINGERS SOLUTION,LACTATED 500 ML IV ONE (08:00)
[2022-12-02] MEDS: PANTOPRAZOLE SODIUM 40 MG/VIAL IVP SCH (08:55)
[2022-12-02] MEDS: OCTREOTIDE ACETATE 100 MCG/ML VIAL IVP SCH ×3 (08:56→20:48)
[2022-12-02] MEDS: DOCUSATE SODIUM 100 MG CAPSULE PO SCH ×2 (08:56→20:21)
[2022-12-02 11:24] VITALS: BP 149/72
[2022-12-02 15:47] VITALS: BP 162/76
[2022-12-02 17:31] LABS: CREATININE,URINE RANDOM 71.1 mg/dL (30.0-125.0)
[2022-12-02 17:33] LABS: CALCIUM, TOTAL 7.6 mg/dL (8.8-10.5); CREATININE 1.49 mg/dL (0.60-1.30); MAGNESIUM 1.8 mg/dL (1.80-2.40); PHOSPHORUS 2.6 mg/dL (2.5-4.9)
[2022-12-02] MEDS: ACETAMINOPHEN 650 MG/ISO-OSM 65 ML IV PRN (18:15)
[2022-12-02 20:53] VITALS: BP 158/88
[2022-12-03] VITALS (7 sets, daily range): BP systolic 149–166; BP diastolic 5–88
[2022-12-03] MEDS: SODIUM CHLORIDE 0.9% 1,000 ML IV SCH ×2 (04:36→12:34)
[2022-12-03] MEDS: PIPERACILLIN SODIUM/TAZOBACTAM 2.25 GM in DEXTROSE 5%-WATER 50 ML IV SCH ×3 (05:47→17:01)
[2022-12-03] MEDS ORDERED: HydrALAZINE HCL 20 MG/ML VIAL IVP ONE (06:00)
[2022-12-03] MEDS: FUROSEMIDE 40 MG/4 ML VIAL IVP SCH ×2 (06:58→09:11)
[2022-12-03 07:01] LABS: BASOPHILS % (AUTO) 0.1 % (0.0-2.0); EOSINOPHILS % (AUTO) 0.1 % (1.0-6.0); LYMPHOCYTES # (AUTO) 0.8 K/uL (1.0-4.8); LYMPHOCYTES % (AUTO) 7.4 % (22.0-44.0); MEAN CORPUSCULAR HEMOGLOBIN 27.8 pg (26.0-34.0); MEAN CORPUSCULAR HGB CONC 31.1 G/dL (31.0-37.0); MEAN CORPUSCULAR VOLUME 89 fL (80-100); MONOCYTES # (AUTO) 0.5 K/uL (0.1-1.0); MONOCYTES % (AUTO) 4.4 % (2.0-9.0); NEUTROPHILS # (AUTO) 9.5 K/uL (1.8-7.7); PLATELET COUNT (AUTO) 214 K/uL (150-450); RED BLOOD CELL COUNT(AUTO) 4.69 MIL/uL (4.50-5.90); RED CELL DISTRIBUTION WIDTH 14.5 % (11.5-14.5)
[2022-12-03 07:14] LABS: ALBUMIN 2.4 g/dL (3.4-5.0); BILIRUBIN,TOTAL 0.7 mg/dL (0.1-1.0); CALCIUM, TOTAL 8.2 mg/dL (8.8-10.5); CREATININE 1.46 mg/dL (0.60-1.30); POTASSIUM 3.7 mmol/L (3.5-5.1); TOTAL PROTEIN, SERUM 6.7 g/dL (6.4-8.2)
[2022-12-03] MEDS: IPRATROPIUM BROMIDE 0.5 MG/2.5 ML NEB SOLUTION NEB SCH ×5 (07:45→23:11)
[2022-12-03] MEDS: ALBUTEROL SULFATE 2.5 MG/0.5 ML NEB SOLUTION NEB SCH ×5 (07:45→23:11)
[2022-12-03 08:52] LABS: MAGNESIUM 2.1 mg/dL (1.80-2.40); PHOSPHORUS 2.8 mg/dL (2.5-4.9)
[2022-12-03] MEDS: DOCUSATE SODIUM 100 MG CAPSULE PO SCH ×2 (09:00→20:32)
[2022-12-03] MEDS: PANTOPRAZOLE SODIUM 40 MG/VIAL IVP SCH (09:11)
[2022-12-03] MEDS: HEPARIN SODIUM,PORCINE 5,000 UNITS/ML VIAL SQ SCH ×3 (09:11→16:31)
[2022-12-03] MEDS: OCTREOTIDE ACETATE 100 MCG/ML VIAL IVP SCH ×3 (09:12→20:38)
[2022-12-03 12:20] LABS: ABG BASE EXCESS -12.2 mmol/L (-2.0-3.0); ABG CARBOXYHEMOGLOBIN 0.7 % (0.0-1.5); ABG HCO3 16.6 mmol/L (22.0-26.0); ABG METHEMOGLOBIN 0.2 % (0.0-1.5); ABG OXYGEN CONTENT 18.3 mL/dL (15.0-23.0); ABG OXYGEN SATURATION 93.8 % (95.0-98.0); ABG PCO2 22 mmHg (35-45); ABG PH 7.382 (7.35-7.450); PO2, ARTERIAL BG 66.5 mmHg (71.0-79.0); SOURCE, BLOOD GAS ARTERIAL; TEMPERATURE, FAHRENHEIT, BG 98.2 FAHREN (96.0-98.6)
[2022-12-03 12:26] LABS: ABG A-A DIFF O2 135.7 mmHg (10-20.0); O2 DEVICE,BLOOD GAS CANNULA (ROOM AIR); SITE, BLOOD GAS LFT RADIAL
[2022-12-03] MEDS: DEXTROSE 5%-0.45% SODIUM CHL 1,000 ML IV SCH (16:31)
[2022-12-04] MEDS: HEPARIN SODIUM,PORCINE 5,000 UNITS/ML VIAL SQ SCH ×4 (00:39→23:37)
[2022-12-04] MEDS: PIPERACILLIN SODIUM/TAZOBACTAM 2.25 GM in DEXTROSE 5%-WATER 50 ML IV SCH ×5 (00:42→23:38)
[2022-12-04] MEDS: DEXTROSE 5%-0.45% SODIUM CHL 1,000 ML IV SCH (01:45)
[2022-12-04 04:28] VITALS: BP 149/77
[2022-12-04] MEDS: ALBUTEROL SULFATE 2.5 MG/0.5 ML NEB SOLUTION NEB SCH ×6 (05:46→23:09)
[2022-12-04] MEDS: IPRATROPIUM BROMIDE 0.5 MG/2.5 ML NEB SOLUTION NEB SCH ×6 (05:46→23:09)
[2022-12-04 07:24] LABS: HEMATOCRIT 36.6 % (41-53); HEMOGLOBIN 11.7 g/dL (13.5-17.5); MEAN CORPUSCULAR HEMOGLOBIN 27.6 pg (26.0-34.0); MEAN CORPUSCULAR VOLUME 86 fL (80-100); PLATELET COUNT (AUTO) 159 K/uL (150-450); RED BLOOD CELL COUNT(AUTO) 4.25 MIL/uL (4.50-5.90)
[2022-12-04 07:31] LABS: ALBUMIN 2.1 g/dL (3.4-5.0); CALCIUM, TOTAL 7.9 mg/dL (8.8-10.5); CREATININE 1.54 mg/dL (0.60-1.30); TOTAL PROTEIN, SERUM 5.8 g/dL (6.4-8.2)
[2022-12-04 07:37] LABS: POTASSIUM 2.7 mmol/L (3.5-5.1)
[2022-12-04 07:47] LABS: BAND NEUTROPHILS % (MANUAL) 24 % (0-5); LYMPHOCYTES % (MANUAL) 18 % (22-44); MONOCYTES % (MANUAL) 1 % (2-9); SEGMENTED NEUTROPHILS % 57 % (40-70)
[2022-12-04] MEDS ORDERED: POTASSIUM CHL 10 MEQ/WATER 50 ML IV SCH (08:15)
[2022-12-04 08:17] VITALS: BP 141/74
[2022-12-04] MEDS: POTASSIUM CHL 10 MEQ/WATER 50 ML IV SCH ×4 (08:45→12:38)
[2022-12-04] MEDS: PANTOPRAZOLE SODIUM 40 MG/VIAL IVP SCH (09:09)
[2022-12-04] MEDS: DOCUSATE SODIUM 100 MG CAPSULE PO SCH ×2 (09:10→20:12)
[2022-12-04] MEDS: OCTREOTIDE ACETATE 100 MCG/ML VIAL IVP SCH ×3 (09:10→20:13)
[2022-12-04] MEDS: SODIUM CHL IV SCH (09:30)
[2022-12-04] MEDS: DEXTROSE IV SCH (09:30)
[2022-12-04] MEDS: POTASSIUM CHLORIDE IV SCH (09:30)
[2022-12-04 11:46] VITALS: BP_SYST 133; BP_SYST 208; BP_DIAS 103; BP_DIAS 76
[2022-12-04] MEDS: BUDESONIDE 0.5 MG/2 ML NEB SOLUTION NEB SCH ×2 (11:49→19:17)
[2022-12-04 11:53] LABS: PHOSPHORUS 1.3 mg/dL (2.5-4.9)
[2022-12-04] MEDS ORDERED: POTASSIUM PHOS,M-BASIC-D-BASIC 30 MMOL in DEXTROSE 5%-WATER 250 ML IV ONE (14:15)
[2022-12-04 15:05] VITALS: BP 144/68
[2022-12-04] MEDS ORDERED: SODIUM CHLORIDE 0.9% 500 ML IV ONE (15:53)
[2022-12-04] MEDS: HYDROmorphone HCL 2 MG/ML SYRINGE IVP PRN ×2 (15:54→23:39)
[2022-12-04 17:36] LABS: CALCIUM, TOTAL 7.8 mg/dL (8.8-10.5); CREATININE 1.37 mg/dL (0.60-1.30); MAGNESIUM 1.9 mg/dL (1.80-2.40); PHOSPHORUS 1.8 mg/dL (2.5-4.9)
[2022-12-04 17:44] LABS: POTASSIUM 2.9 mmol/L (3.5-5.1)
[2022-12-04 20:13] VITALS: BP 133/79
[2022-12-05 00:20] VITALS: BP 159/86
[2022-12-05 00:51] LABS: CALCIUM, TOTAL 7.5 mg/dL (8.8-10.5); CREATININE 1.36 mg/dL (0.60-1.30); POTASSIUM 3.1 mmol/L (3.5-5.1)
[2022-12-05] MEDS: ALBUTEROL SULFATE 2.5 MG/0.5 ML NEB SOLUTION NEB SCH ×6 (01:20→23:03)
[2022-12-05] MEDS: IPRATROPIUM BROMIDE 0.5 MG/2.5 ML NEB SOLUTION NEB SCH ×6 (01:20→23:03)
[2022-12-05 04:19] VITALS: BP 155/84
[2022-12-05] MEDS: SODIUM CHL IV SCH (06:05)
[2022-12-05] MEDS: DEXTROSE IV SCH (06:05)
[2022-12-05] MEDS: POTASSIUM CHLORIDE IV SCH (06:05)
[2022-12-05] MEDS: PIPERACILLIN SODIUM/TAZOBACTAM 2.25 GM in DEXTROSE 5%-WATER 50 ML IV SCH ×4 (06:27→23:51)
[2022-12-05 06:56] LABS: HEMATOCRIT 34.6 % (41-53); HEMOGLOBIN 11.4 g/dL (13.5-17.5); MEAN CORPUSCULAR HEMOGLOBIN 28.2 pg (26.0-34.0); MEAN CORPUSCULAR VOLUME 85 fL (80-100); PLATELET COUNT (AUTO) 141 K/uL (150-450); RED BLOOD CELL COUNT(AUTO) 4.06 MIL/uL (4.50-5.90); RED CELL DISTRIBUTION WIDTH 13.9 % (11.5-14.5)
[2022-12-05 07:02] LABS: ALBUMIN 1.8 g/dL (3.4-5.0); BILIRUBIN,TOTAL 1.4 mg/dL (0.1-1.0); CALCIUM, TOTAL 7.7 mg/dL (8.8-10.5); CREATININE 1.26 mg/dL (0.60-1.30); POTASSIUM 3.3 mmol/L (3.5-5.1); TOTAL PROTEIN, SERUM 5.8 g/dL (6.4-8.2)
[2022-12-05 07:54] LABS: BAND NEUTROPHILS % (MANUAL) 24 % (0-5); LYMPHOCYTES % (MANUAL) 5 % (22-44); MONOCYTES % (MANUAL) 1 % (2-9); SEGMENTED NEUTROPHILS % 70 % (40-70)
[2022-12-05 07:55] VITALS: BP 155/102
[2022-12-05] MEDS: BUDESONIDE 0.5 MG/2 ML NEB SOLUTION NEB SCH ×2 (08:12→20:02)
[2022-12-05] MEDS: HEPARIN SODIUM,PORCINE 5,000 UNITS/ML VIAL SQ SCH ×3 (08:43→23:52)
[2022-12-05] MEDS: PANTOPRAZOLE SODIUM 40 MG/VIAL IVP SCH (08:43)
[2022-12-05] MEDS: OCTREOTIDE ACETATE 100 MCG/ML VIAL IVP SCH ×3 (08:45→21:44)
[2022-12-05] MEDS: DOCUSATE SODIUM 100 MG CAPSULE PO SCH (08:48)
[2022-12-05 08:51] LABS: MAGNESIUM 1.8 mg/dL (1.80-2.40); PHOSPHORUS 2.5 mg/dL (2.5-4.9)
[2022-12-05] MEDS: POTASSIUM CHLORIDE 20 MEQ in DEXTROSE 5%-WATER 1,000 ML IV SCH (11:16)
[2022-12-05 12:25] VITALS: BP 148/99
[2022-12-05 16:30] VITALS: BP 160/103
[2022-12-05] MEDS ORDERED: FUROSEMIDE 40 MG/4 ML VIAL ONE (16:47)
[2022-12-05] MEDS ORDERED: MethylPREDNISolone SOD SUCC 40 MG/ML VIAL IVP ONE (17:00)
[2022-12-05] MEDS ORDERED: POTASSIUM CHL 10 MEQ/WATER 50 ML IV SCH (17:30)
[2022-12-05] MEDS ORDERED: FUROSEMIDE 40 MG/4 ML VIAL IVP ONE (17:45)
[2022-12-05 20:50] VITALS: BP 150/85
[2022-12-05] MEDS ORDERED: POTASSIUM CHLORIDE 20 MEQ in DEXTROSE 5%-WATER 1,000 ML IV SCH (21:00)
[2022-12-05] MEDS: MethylPREDNISolone SOD SUCC 40 MG/ML VIAL IVP SCH (21:45)
[2022-12-06 01:34] VITALS: BP 152/85
[2022-12-06] MEDS: IPRATROPIUM BROMIDE 0.5 MG/2.5 ML NEB SOLUTION NEB SCH ×6 (03:08→23:00)
[2022-12-06] MEDS: ALBUTEROL SULFATE 2.5 MG/0.5 ML NEB SOLUTION NEB SCH ×6 (03:08→23:00)
[2022-12-06 06:14] VITALS: BP 146/89
[2022-12-06 07:16] LABS: HEMATOCRIT 35.4 % (41-53); HEMOGLOBIN 11.8 g/dL (13.5-17.5); MEAN CORPUSCULAR HEMOGLOBIN 28.4 pg (26.0-34.0); MEAN CORPUSCULAR HGB CONC 33.3 G/dL (31.0-37.0); MEAN CORPUSCULAR VOLUME 85 fL (80-100); PLATELET COUNT (AUTO) 150 K/uL (150-450); RED BLOOD CELL COUNT(AUTO) 4.16 MIL/uL (4.50-5.90); RED CELL DISTRIBUTION WIDTH 13.6 % (11.5-14.5)
[2022-12-06 07:24] LABS: BAND NEUTROPHILS % (MANUAL) 22 % (0-5); LYMPHOCYTES % (MANUAL) 5 % (22-44); MONOCYTES % (MANUAL) 3 % (2-9); SEGMENTED NEUTROPHILS % 70 % (40-70)
[2022-12-06 07:40] LABS: ALBUMIN 1.8 g/dL (3.4-5.0); BILIRUBIN,TOTAL 1.2 mg/dL (0.1-1.0); CALCIUM, TOTAL 7.8 mg/dL (8.8-10.5); CREATININE 1.29 mg/dL (0.60-1.30); POTASSIUM 3.5 mmol/L (3.5-5.1)
[2022-12-06 07:55] VITALS: BP 145/85
[2022-12-06 08:23] LABS: PHOSPHORUS 2.3 mg/dL (2.5-4.9)
[2022-12-06] MEDS: HEPARIN SODIUM,PORCINE 5,000 UNITS/ML VIAL SQ SCH ×2 (09:27→16:10)
[2022-12-06] MEDS: PANTOPRAZOLE SODIUM 40 MG/VIAL IVP SCH (09:27)
[2022-12-06] MEDS: MethylPREDNISolone SOD SUCC 40 MG/ML VIAL IVP SCH ×2 (09:27→22:04)
[2022-12-06] MEDS: PIPERACILLIN SODIUM/TAZOBACTAM 2.25 GM in DEXTROSE 5%-WATER 50 ML IV SCH ×3 (09:28→17:49)
[2022-12-06] MEDS: POTASSIUM CHLORIDE 20 MEQ in DEXTROSE 5%-WATER 1,000 ML IV SCH ×2 (09:29→16:09)
[2022-12-06] MEDS: OCTREOTIDE ACETATE 100 MCG/ML VIAL IVP SCH ×3 (09:30→22:03)
[2022-12-06] MEDS: BUDESONIDE 0.5 MG/2 ML NEB SOLUTION NEB SCH ×2 (09:52→20:10)
[2022-12-06 11:50] VITALS: BP 157/96
[2022-12-06 16:15] VITALS: BP 147/80
[2022-12-06 19:48] VITALS: BP 153/82
[2022-12-07] VITALS (7 sets, daily range): BP systolic 143–165; BP diastolic 81–96
[2022-12-07] MEDS: PIPERACILLIN SODIUM/TAZOBACTAM 2.25 GM in DEXTROSE 5%-WATER 50 ML IV SCH ×4 (01:11→17:20)
[2022-12-07] MEDS: HEPARIN SODIUM,PORCINE 5,000 UNITS/ML VIAL SQ SCH ×3 (01:12→17:19)
[2022-12-07] MEDS: ALBUTEROL SULFATE 2.5 MG/0.5 ML NEB SOLUTION NEB SCH ×6 (03:12→23:50)
[2022-12-07] MEDS: IPRATROPIUM BROMIDE 0.5 MG/2.5 ML NEB SOLUTION NEB SCH ×6 (03:12→23:50)
[2022-12-07 07:45] LABS: HEMATOCRIT 36.3 % (41-53); HEMOGLOBIN 11.6 g/dL (13.5-17.5); MEAN CORPUSCULAR HEMOGLOBIN 27.3 pg (26.0-34.0); MEAN CORPUSCULAR HGB CONC 31.9 G/dL (31.0-37.0); MEAN CORPUSCULAR VOLUME 86 fL (80-100); PLATELET COUNT (AUTO) 181 K/uL (150-450); RED BLOOD CELL COUNT(AUTO) 4.25 MIL/uL (4.50-5.90); RED CELL DISTRIBUTION WIDTH 13.6 % (11.5-14.5)
[2022-12-07] MEDS: BUDESONIDE 0.5 MG/2 ML NEB SOLUTION NEB SCH ×2 (07:50→20:28)
[2022-12-07 08:13] LABS: ALBUMIN 1.7 g/dL (3.4-5.0); BILIRUBIN,TOTAL 0.8 mg/dL (0.1-1.0); CALCIUM, TOTAL 7.8 mg/dL (8.8-10.5); CREATININE 1.25 mg/dL (0.60-1.30); MAGNESIUM 2.1 mg/dL (1.80-2.40); PHOSPHORUS 2.1 mg/dL (2.5-4.9); POTASSIUM 3.5 mmol/L (3.5-5.1); TOTAL PROTEIN, SERUM 5.8 g/dL (6.4-8.2)
[2022-12-07] MEDS: POTASSIUM CHLORIDE 20 MEQ in DEXTROSE 5%-WATER 1,000 ML IV SCH (08:39)
[2022-12-07] MEDS: OCTREOTIDE ACETATE 100 MCG/ML VIAL IVP SCH ×3 (08:39→21:53)
[2022-12-07] MEDS: MethylPREDNISolone SOD SUCC 40 MG/ML VIAL IVP SCH ×2 (08:40→21:52)
[2022-12-07] MEDS: PANTOPRAZOLE SODIUM 40 MG/VIAL IVP SCH (08:40)
[2022-12-07 08:45] LABS: BAND NEUTROPHILS % (MANUAL) 24 % (0-5); LYMPHOCYTES % (MANUAL) 7 % (22-44); MONOCYTES % (MANUAL) 4 % (2-9); SEGMENTED NEUTROPHILS % 65 % (40-70)
[2022-12-07] MEDS ORDERED: SODIUM CHLORIDE 0.9% 250 ML IV ONE (11:44)
[2022-12-07] MEDS: SODIUM,POTASSIUM PHOSPHATES POWDER PACKET PO SCH ×2 (11:46→21:52)
[2022-12-07] MEDS ORDERED: CloNIDine 0.2 MG/24 HOUR PATCH TD ONE (17:30)
[2022-12-07] MEDS ORDERED: HydrALAZINE HCL 20 MG/ML VIAL IVP PRN (17:30)
[2022-12-08] MEDS: HEPARIN SODIUM,PORCINE 5,000 UNITS/ML VIAL SQ SCH ×4 (01:45→23:38)
[2022-12-08] MEDS: PIPERACILLIN SODIUM/TAZOBACTAM 2.25 GM in DEXTROSE 5%-WATER 50 ML IV SCH ×5 (01:45→23:49)
[2022-12-08] MEDS: IPRATROPIUM BROMIDE 0.5 MG/2.5 ML NEB SOLUTION NEB SCH ×6 (02:38→23:36)
[2022-12-08] MEDS: ALBUTEROL SULFATE 2.5 MG/0.5 ML NEB SOLUTION NEB SCH ×6 (02:38→23:36)
[2022-12-08 03:18] VITALS: BP 139/73
[2022-12-08] MEDS: POTASSIUM CHLORIDE 20 MEQ in DEXTROSE 5%-WATER 1,000 ML IV SCH (05:27)
[2022-12-08 06:40] LABS: BASOPHILS % (AUTO) 0.2 % (0.0-2.0); EOSINOPHILS % (AUTO) 0 % (1.0-6.0); HEMATOCRIT 35.3 % (41-53); HEMOGLOBIN 11.3 g/dL (13.5-17.5); LYMPHOCYTES # (AUTO) 0.5 K/uL (1.0-4.8); LYMPHOCYTES % (AUTO) 2.5 % (22.0-44.0); MEAN CORPUSCULAR HEMOGLOBIN 27.2 pg (26.0-34.0); MEAN CORPUSCULAR VOLUME 85 fL (80-100); MONOCYTES # (AUTO) 0.9 K/uL (0.1-1.0); MONOCYTES % (AUTO) 4.4 % (2.0-9.0); PLATELET COUNT (AUTO) 173 K/uL (150-450); RED BLOOD CELL COUNT(AUTO) 4.15 MIL/uL (4.50-5.90); RED CELL DISTRIBUTION WIDTH 13.4 % (11.5-14.5)
[2022-12-08] MEDS: BUDESONIDE 0.5 MG/2 ML NEB SOLUTION NEB SCH ×2 (06:46→20:00)
[2022-12-08 06:50] LABS: NEUTROPHILS % (AUTO) 92.9 % (40.0-70.0)
[2022-12-08 06:56] LABS: CALCIUM, TOTAL 7.8 mg/dL (8.8-10.5); CREATININE 1.21 mg/dL (0.60-1.30); PHOSPHORUS 3.2 mg/dL (2.5-4.9); POTASSIUM 3.9 mmol/L (3.5-5.1)
[2022-12-08 07:00] LABS: ALBUMIN 1.6 g/dL (3.4-5.0); BILIRUBIN,TOTAL 0.8 mg/dL (0.1-1.0); CALCIUM, TOTAL 7.8 mg/dL (8.8-10.5); CREATININE 1.23 mg/dL (0.60-1.30); TOTAL PROTEIN, SERUM 5.3 g/dL (6.4-8.2)
[2022-12-08 08:07] VITALS: BP 151/84
[2022-12-08] MEDS: MethylPREDNISolone SOD SUCC 40 MG/ML VIAL IVP SCH (09:08)
[2022-12-08] MEDS: PANTOPRAZOLE SODIUM 40 MG/VIAL IVP SCH (09:09)
[2022-12-08] MEDS: OCTREOTIDE ACETATE 100 MCG/ML VIAL IVP SCH ×3 (09:09→20:07)
[2022-12-08 11:49] VITALS: BP 152/84
[2022-12-08] MEDS ORDERED: DEXTROSE 50%-WATER 25 GM/50 ML SYRINGE IVP PRN (15:00)
[2022-12-08] MEDS: PredniSONE 20 MG TABLET PO SCH (15:30)
[2022-12-08 16:13] VITALS: BP 146/80
[2022-12-08] MEDS: INSULIN LISPRO 100 UNITS/ML SQ PRN ×2 (17:55→20:36)
[2022-12-08 20:10] VITALS: BP 122/69
[2022-12-08 22:02] LABS: GLUCOMETER DEV NAME(LOC) 5N.2C; GLUCOSE,POINT OF CARE 171 MG/DL (70-110)
[2022-12-08 22:02] LABS: GLUCOMETER DEV NAME(LOC) 5N.2C; GLUCOSE,POINT OF CARE 233 MG/DL (70-110)
[2022-12-08] MEDS: RINGERS SOLUTION,LACTATED 1,000 ML IV SCH (22:51)
[2022-12-08] MEDS ORDERED: SODIUM CHLORIDE 0.9% 250 ML IV ONE (23:51)
[2022-12-09 00:34] VITALS: BP 131/70
[2022-12-09] MEDS: ALBUTEROL SULFATE 2.5 MG/0.5 ML NEB SOLUTION NEB SCH ×6 (02:48→22:48)
[2022-12-09] MEDS: IPRATROPIUM BROMIDE 0.5 MG/2.5 ML NEB SOLUTION NEB SCH ×6 (02:49→22:48)
[2022-12-09 04:32] VITALS: BP 135/67
[2022-12-09] MEDS: INSULIN LISPRO 100 UNITS/ML SQ PRN ×2 (05:38→17:21)
[2022-12-09] MEDS: PIPERACILLIN SODIUM/TAZOBACTAM 2.25 GM in DEXTROSE 5%-WATER 50 ML IV SCH ×3 (05:44→18:28)
[2022-12-09 07:44] LABS: CALCIUM, TOTAL 7.6 mg/dL (8.8-10.5); CREATININE 1.15 mg/dL (0.60-1.30); MAGNESIUM 2.2 mg/dL (1.80-2.40); PHOSPHORUS 3.8 mg/dL (2.5-4.9); POTASSIUM 4.2 mmol/L (3.5-5.1)
[2022-12-09] MEDS: HEPARIN SODIUM,PORCINE 5,000 UNITS/ML VIAL SQ SCH ×2 (08:00→16:13)
[2022-12-09 08:02] VITALS: BP 132/70
[2022-12-09] MEDS: PANTOPRAZOLE SODIUM 40 MG/VIAL IVP SCH (08:43)
[2022-12-09] MEDS: OCTREOTIDE ACETATE 100 MCG/ML VIAL IVP SCH ×3 (08:43→20:31)
[2022-12-09] MEDS: PredniSONE 20 MG TABLET PO SCH (09:00)
[2022-12-09] MEDS: BUDESONIDE 0.5 MG/2 ML NEB SOLUTION NEB SCH ×2 (09:16→19:22)
[2022-12-09 10:01] LABS: GLUCOMETER DEV NAME(LOC) 5S.2C; GLUCOSE,POINT OF CARE 175 MG/DL (70-110)
[2022-12-09 11:25] LABS: GLUCOMETER DEV NAME(LOC) 5S.2C; GLUCOSE,POINT OF CARE 150 MG/DL (70-110)
[2022-12-09 11:40] VITALS: BP 133/74
[2022-12-09 18:06] LABS: GLUCOMETER DEV NAME(LOC) 5N.2C; GLUCOSE,POINT OF CARE 163 MG/DL (70-110)
[2022-12-09] MEDS: RINGERS SOLUTION,LACTATED 1,000 ML IV SCH (18:28)
[2022-12-09 19:46] VITALS: BP 122/61
[2022-12-09 23:31] VITALS: BP 127/68
[2022-12-10] MEDS: HEPARIN SODIUM,PORCINE 5,000 UNITS/ML VIAL SQ SCH ×4 (00:06→23:18)
[2022-12-10] MEDS: PIPERACILLIN SODIUM/TAZOBACTAM 2.25 GM in DEXTROSE 5%-WATER 50 ML IV SCH ×5 (00:06→23:19)
[2022-12-10 03:11] VITALS: BP 146/65
[2022-12-10] MEDS: ALBUTEROL SULFATE 2.5 MG/0.5 ML NEB SOLUTION NEB SCH ×6 (03:19→23:00)
[2022-12-10] MEDS: IPRATROPIUM BROMIDE 0.5 MG/2.5 ML NEB SOLUTION NEB SCH ×6 (03:19→23:00)
[2022-12-10 06:21] LABS: GLUCOMETER DEV NAME(LOC) 5S.2C; GLUCOSE,POINT OF CARE 124 MG/DL (70-110)
[2022-12-10 07:24] LABS: HEMATOCRIT 39.4 % (41-53); HEMOGLOBIN 12.7 g/dL (13.5-17.5); MEAN CORPUSCULAR HEMOGLOBIN 27.5 pg (26.0-34.0); MEAN CORPUSCULAR HGB CONC 32.2 G/dL (31.0-37.0); MEAN CORPUSCULAR VOLUME 85 fL (80-100); PLATELET COUNT (AUTO) 253 K/uL (150-450); RED BLOOD CELL COUNT(AUTO) 4.62 MIL/uL (4.50-5.90); RED CELL DISTRIBUTION WIDTH 13.3 % (11.5-14.5)
[2022-12-10 07:46] LABS: CALCIUM, TOTAL 7.7 mg/dL (8.8-10.5); CREATININE 1.22 mg/dL (0.60-1.30); MAGNESIUM 2.1 mg/dL (1.80-2.40); PHOSPHORUS 2.8 mg/dL (2.5-4.9); POTASSIUM 3.7 mmol/L (3.5-5.1)
[2022-12-10 07:51] VITALS: BP 138/77
[2022-12-10 08:13] LABS: BAND NEUTROPHILS % (MANUAL) 28 % (0-5); EOSINOPHILS % (MANUAL) 1 % (1-6); METAMYELOCYTES % 1 % (0-0); MONOCYTES % (MANUAL) 3 % (2-9); SEGMENTED NEUTROPHILS % 67 % (40-70)
[2022-12-10 08:14] LABS: WBC MORPHOLOGY TOXIC GRANULATION
[2022-12-10] MEDS: RINGERS SOLUTION,LACTATED 1,000 ML IV SCH (08:41)
[2022-12-10] MEDS: PANTOPRAZOLE SODIUM 40 MG/VIAL IVP SCH (08:42)
[2022-12-10] MEDS: PredniSONE 20 MG TABLET PO SCH (08:44)
[2022-12-10] MEDS: OCTREOTIDE ACETATE 100 MCG/ML VIAL IVP SCH ×3 (08:54→20:24)
[2022-12-10] MEDS: BUDESONIDE 0.5 MG/2 ML NEB SOLUTION NEB SCH ×2 (09:01→19:43)
[2022-12-10 11:50] VITALS: BP 124/70
[2022-12-10] MEDS ORDERED: FLUMAZENIL 0.1 MG/ML 5 ML VIAL IVP ONE (13:32)
[2022-12-10] MEDS ORDERED: MIDAZOLAM HCL 2 MG/2 ML VIAL ONE (13:32)
[2022-12-10] MEDS ORDERED: FentaNYL CITRATE PF 100 MCG/2 ML VIAL ONE (13:32)
[2022-12-10] MEDS ORDERED: NALOXONE HCL 0.4 MG/ML VIAL ONE (13:32)
[2022-12-10 13:56] LABS: GLUCOMETER DEV NAME(LOC) 5S.2C; GLUCOSE,POINT OF CARE 94 MG/DL (70-110)
[2022-12-10 13:56] LABS: GLUCOMETER DEV NAME(LOC) 5N.2C; GLUCOSE,POINT OF CARE 120 MG/DL (70-110)
[2022-12-10 15:19] VITALS: BP 145/71
[2022-12-10] MEDS ORDERED: MIDAZOLAM HCL 2 MG/2 ML VIAL IVP ONE (17:15)
[2022-12-10] MEDS ORDERED: FentaNYL CITRATE PF 100 MCG/2 ML VIAL IVP ONE (17:15)
[2022-12-10 18:01] LABS: GLUCOMETER DEV NAME(LOC) 5S.2C; GLUCOSE,POINT OF CARE 129 MG/DL (70-110)
[2022-12-10 20:13] VITALS: BP 134/70
[2022-12-10] MEDS: INSULIN LISPRO 100 UNITS/ML SQ PRN (20:39)
[2022-12-10 21:06] LABS: GLUCOMETER DEV NAME(LOC) 5S.2C; GLUCOSE,POINT OF CARE 156 MG/DL (70-110)
[2022-12-11] VITALS (7 sets, daily range): BP systolic 113–136; BP diastolic 65–74
[2022-12-11] MEDS: ALBUTEROL SULFATE 2.5 MG/0.5 ML NEB SOLUTION NEB SCH ×6 (03:09→22:55)
[2022-12-11] MEDS: IPRATROPIUM BROMIDE 0.5 MG/2.5 ML NEB SOLUTION NEB SCH ×6 (03:09→22:55)
[2022-12-11] MEDS: PIPERACILLIN SODIUM/TAZOBACTAM 2.25 GM in DEXTROSE 5%-WATER 50 ML IV SCH ×4 (05:28→23:49)
[2022-12-11 05:31] LABS: GLUCOMETER DEV NAME(LOC) 5N.2C; GLUCOSE,POINT OF CARE 171 MG/DL (70-110)
[2022-12-11] MEDS: INSULIN LISPRO 100 UNITS/ML SQ PRN ×3 (05:40→18:14)
[2022-12-11 07:39] LABS: CALCIUM, TOTAL 7.4 mg/dL (8.8-10.5); CREATININE 1.22 mg/dL (0.60-1.30); POTASSIUM 4.2 mmol/L (3.5-5.1)
[2022-12-11] MEDS: BUDESONIDE 0.5 MG/2 ML NEB SOLUTION NEB SCH ×2 (08:00→19:45)
[2022-12-11] MEDS: HEPARIN SODIUM,PORCINE 5,000 UNITS/ML VIAL SQ SCH ×3 (08:54→23:50)
[2022-12-11] MEDS: PANTOPRAZOLE SODIUM 40 MG/VIAL IVP SCH (08:54)
[2022-12-11] MEDS: OCTREOTIDE ACETATE 100 MCG/ML VIAL IVP SCH ×3 (08:54→20:44)
[2022-12-11] MEDS: PredniSONE 20 MG TABLET PO SCH (08:55)
[2022-12-11 19:46] LABS: GLUCOMETER DEV NAME(LOC) 5S.2C; GLUCOSE,POINT OF CARE 166 MG/DL (70-110)
[2022-12-11 19:46] LABS: GLUCOMETER DEV NAME(LOC) 5S.2C; GLUCOSE,POINT OF CARE 185 MG/DL (70-110)
[2022-12-12] LABS: GLUCOMETER DEV NAME(LOC) 5S.2C; GLUCOSE,POINT OF CARE 178 MG/DL (70-110)
[2022-12-12] MEDS: IPRATROPIUM BROMIDE 0.5 MG/2.5 ML NEB SOLUTION NEB SCH ×6 (02:17→23:13)
[2022-12-12] MEDS: ALBUTEROL SULFATE 2.5 MG/0.5 ML NEB SOLUTION NEB SCH ×6 (02:17→23:13)
[2022-12-12 03:27] VITALS: BP 120/65
[2022-12-12] MEDS: PIPERACILLIN SODIUM/TAZOBACTAM 2.25 GM in DEXTROSE 5%-WATER 50 ML IV SCH ×4 (05:36→23:35)
[2022-12-12 06:36] LABS: HEMATOCRIT 35.4 % (41-53); HEMOGLOBIN 11.3 g/dL (13.5-17.5); MEAN CORPUSCULAR HEMOGLOBIN 27.8 pg (26.0-34.0); MEAN CORPUSCULAR VOLUME 87 fL (80-100); PLATELET COUNT (AUTO) 221 K/uL (150-450); RED BLOOD CELL COUNT(AUTO) 4.08 MIL/uL (4.50-5.90); RED CELL DISTRIBUTION WIDTH 13.8 % (11.5-14.5)
[2022-12-12 07:33] VITALS: BP 127/66
[2022-12-12 07:40] LABS: BAND NEUTROPHILS % (MANUAL) 17 % (0-5); LYMPHOCYTES % (MANUAL) 3 % (22-44); METAMYELOCYTES % 6 % (0-0); MONOCYTES % (MANUAL) 6 % (2-9); SEGMENTED NEUTROPHILS % 68 % (40-70)
[2022-12-12 07:42] LABS: ALBUMIN 1.3 g/dL (3.4-5.0); BILIRUBIN,TOTAL 0.7 mg/dL (0.1-1.0); CALCIUM, TOTAL 7.5 mg/dL (8.8-10.5); CREATININE 1.19 mg/dL (0.60-1.30); POTASSIUM 4.7 mmol/L (3.5-5.1); TOTAL PROTEIN, SERUM 4.9 g/dL (6.4-8.2)
[2022-12-12] MEDS: BUDESONIDE 0.5 MG/2 ML NEB SOLUTION NEB SCH ×2 (08:07→20:00)
[2022-12-12] MEDS: PredniSONE 20 MG TABLET PO SCH (08:19)
[2022-12-12] MEDS: OCTREOTIDE ACETATE 100 MCG/ML VIAL IVP SCH ×3 (08:20→20:13)
[2022-12-12] MEDS: PANTOPRAZOLE SODIUM 40 MG/VIAL IVP SCH (08:20)
[2022-12-12] MEDS: HEPARIN SODIUM,PORCINE 5,000 UNITS/ML VIAL SQ SCH ×3 (08:20→23:35)
[2022-12-12 11:32] VITALS: BP 119/68
[2022-12-12] MEDS: INSULIN LISPRO 100 UNITS/ML SQ PRN ×3 (11:39→20:24)
[2022-12-12 11:51] LABS: GLUCOMETER DEV NAME(LOC) 5N.1C; GLUCOSE,POINT OF CARE 157 MG/DL (70-110)
[2022-12-12 12:01] LABS: GLUCOMETER DEV NAME(LOC) 5S.2C; GLUCOSE,POINT OF CARE 192 MG/DL (70-110)
[2022-12-12 15:38] VITALS: BP 122/69
[2022-12-12 19:30] VITALS: BP 113/62
[2022-12-12] MEDS ORDERED: SODIUM CHLORIDE 0.9% 250 ML IV ONE (20:01)
[2022-12-12 21:11] LABS: GLUCOMETER DEV NAME(LOC) 5S.2C; GLUCOSE,POINT OF CARE 179 MG/DL (70-110)
[2022-12-12 21:11] LABS: GLUCOMETER DEV NAME(LOC) 5S.2C; GLUCOSE,POINT OF CARE 178 MG/DL (70-110)
[2022-12-13 00:24] VITALS: BP 118/63
[2022-12-13] MEDS: IPRATROPIUM BROMIDE 0.5 MG/2.5 ML NEB SOLUTION NEB SCH ×6 (02:18→23:58)
[2022-12-13] MEDS: ALBUTEROL SULFATE 2.5 MG/0.5 ML NEB SOLUTION NEB SCH ×6 (02:18→23:58)
[2022-12-13 03:51] VITALS: BP 120/64
[2022-12-13] MEDS: INSULIN LISPRO 100 UNITS/ML SQ PRN ×3 (05:48→20:30)
[2022-12-13] MEDS: PIPERACILLIN SODIUM/TAZOBACTAM 2.25 GM in DEXTROSE 5%-WATER 50 ML IV SCH ×2 (05:49→12:24)
[2022-12-13 05:56] LABS: GLUCOMETER DEV NAME(LOC) 5N.1C; GLUCOSE,POINT OF CARE 149 MG/DL (70-110)
[2022-12-13] MEDS: BUDESONIDE 0.5 MG/2 ML NEB SOLUTION NEB SCH ×2 (06:58→19:22)
[2022-12-13 07:11] VITALS: BP 129/63
[2022-12-13] MEDS: PANTOPRAZOLE SODIUM 40 MG/VIAL IVP SCH (08:53)
[2022-12-13] MEDS: HEPARIN SODIUM,PORCINE 5,000 UNITS/ML VIAL SQ SCH ×3 (08:53→23:29)
[2022-12-13] MEDS: OCTREOTIDE ACETATE 100 MCG/ML VIAL IVP SCH ×3 (08:55→20:24)
[2022-12-13] MEDS ORDERED: PredniSONE 20 MG TABLET PO SCH (09:00)
[2022-12-13 11:07] VITALS: BP 119/69
[2022-12-13 12:36] LABS: GLUCOMETER DEV NAME(LOC) 5S.2C; GLUCOSE,POINT OF CARE 133 MG/DL (70-110)
[2022-12-13 15:11] VITALS: BP 140/68
[2022-12-13] MEDS: MetroNIDAZOLE 500 MG TABLET PO SCH ×2 (15:53→23:29)
[2022-12-13] MEDS: LEVOFLOXACIN 750 MG/D5% WATER 150 ML IV SCH (16:59)
[2022-12-13 20:16] LABS: GLUCOMETER DEV NAME(LOC) 5S.2C; GLUCOSE,POINT OF CARE 185 MG/DL (70-110)
[2022-12-13 20:19] VITALS: BP 131/70
[2022-12-13 20:51] LABS: GLUCOMETER DEV NAME(LOC) 5N.1C; GLUCOSE,POINT OF CARE 179 MG/DL (70-110)
[2022-12-14] VITALS (7 sets, daily range): BP systolic 111–141; BP diastolic 67–98
[2022-12-14] MEDS: IPRATROPIUM BROMIDE 0.5 MG/2.5 ML NEB SOLUTION NEB SCH ×6 (03:34→23:29)
[2022-12-14] MEDS: ALBUTEROL SULFATE 2.5 MG/0.5 ML NEB SOLUTION NEB SCH ×6 (03:34→23:28)
[2022-12-14] MEDS: INSULIN LISPRO 100 UNITS/ML SQ PRN ×2 (06:06→17:24)
[2022-12-14 06:16] LABS: GLUCOMETER DEV NAME(LOC) 5N.1C; GLUCOSE,POINT OF CARE 124 MG/DL (70-110)
[2022-12-14 07:18] LABS: BASOPHILS % (AUTO) 0.2 % (0.0-2.0); EOSINOPHILS % (AUTO) 0.1 % (1.0-6.0); HEMATOCRIT 34.7 % (41-53); LYMPHOCYTES # (AUTO) 1.1 K/uL (1.0-4.8); LYMPHOCYTES % (AUTO) 5.2 % (22.0-44.0); MEAN CORPUSCULAR HEMOGLOBIN 27.3 pg (26.0-34.0); MEAN CORPUSCULAR HGB CONC 31.7 G/dL (31.0-37.0); MEAN CORPUSCULAR VOLUME 86 fL (80-100); MONOCYTES # (AUTO) 1.8 K/uL (0.1-1.0); MONOCYTES % (AUTO) 8.4 % (2.0-9.0); PLATELET COUNT (AUTO) 303 K/uL (150-450); RED BLOOD CELL COUNT(AUTO) 4.02 MIL/uL (4.50-5.90); RED CELL DISTRIBUTION WIDTH 13.4 % (11.5-14.5)
[2022-12-14 07:26] LABS: NEUTROPHILS % (AUTO) 86.1 % (40.0-70.0)
[2022-12-14] MEDS: BUDESONIDE 0.5 MG/2 ML NEB SOLUTION NEB SCH ×2 (07:29→21:08)
[2022-12-14 07:36] LABS: ALANINE AMINOTRANSFERASE 32 U/L (12-78); ALBUMIN 1.4 g/dL (3.4-5.0); ALKALINE PHOSPHATASE 65 U/L (46-116); ANION GAP 7 mmol/L (8-16); ASPARTATE AMINOTRANSFERASE 22 U/L (15-37); BILIRUBIN,TOTAL 0.6 mg/dL (0.1-1.0); CALCIUM, TOTAL 7.4 mg/dL (8.8-10.5); CARBON DIOXIDE 26 mmol/L (22-29); CHLORIDE 105 mmol/L (98-107); CREATININE 1.09 mg/dL (0.60-1.30); GLOMERULAR FILTR. RATE CALC > 60 mL/min (>60); GLUCOSE,RANDOM 133 mg/dL (70-110); SODIUM SERUM 138 mmol/L (136-145); TOTAL PROTEIN, SERUM 4.8 g/dL (6.4-8.2)
[2022-12-14] MEDS: OCTREOTIDE ACETATE 100 MCG/ML VIAL IVP SCH ×3 (10:14→22:08)
[2022-12-14] MEDS: HEPARIN SODIUM,PORCINE 5,000 UNITS/ML VIAL SQ SCH ×3 (10:16→23:20)
[2022-12-14] MEDS: MetroNIDAZOLE 500 MG TABLET PO SCH ×3 (10:16→23:20)
[2022-12-14] MEDS: PANTOPRAZOLE SODIUM 40 MG/VIAL IVP SCH (10:17)
[2022-12-14] MEDS: PredniSONE 10 MG TABLET PO SCH (10:17)
[2022-12-14 20:31] LABS: GLUCOMETER DEV NAME(LOC) 5N.1C; GLUCOSE,POINT OF CARE 173 MG/DL (70-110)
[2022-12-14 20:31] LABS: GLUCOMETER DEV NAME(LOC) 5N.1C; GLUCOSE,POINT OF CARE 153 MG/DL (70-110)
[2022-12-15] MEDS: ALBUTEROL SULFATE 2.5 MG/0.5 ML NEB SOLUTION NEB SCH ×6 (03:00→23:43)
[2022-12-15] MEDS: IPRATROPIUM BROMIDE 0.5 MG/2.5 ML NEB SOLUTION NEB SCH ×6 (03:00→23:43)
[2022-12-15 04:00] VITALS: BP 127/66
[2022-12-15 07:29] VITALS: BP 132/59
[2022-12-15 07:41] LABS: GLUCOMETER DEV NAME(LOC) 5S.2C; GLUCOSE,POINT OF CARE 107 MG/DL (70-110)
[2022-12-15 08:04] LABS: HEMATOCRIT 35.8 % (41-53); HEMOGLOBIN 11.4 g/dL (13.5-17.5); MEAN CORPUSCULAR HEMOGLOBIN 27.2 pg (26.0-34.0); MEAN CORPUSCULAR HGB CONC 31.9 G/dL (31.0-37.0); MEAN CORPUSCULAR VOLUME 85 fL (80-100); PLATELET COUNT (AUTO) 317 K/uL (150-450); RED BLOOD CELL COUNT(AUTO) 4.21 MIL/uL (4.50-5.90); RED CELL DISTRIBUTION WIDTH 13.6 % (11.5-14.5)
[2022-12-15] MEDS: HEPARIN SODIUM,PORCINE 5,000 UNITS/ML VIAL SQ SCH ×3 (08:09→23:19)
[2022-12-15] MEDS: MetroNIDAZOLE 500 MG TABLET PO SCH ×2 (08:09→15:56)
[2022-12-15] MEDS: OCTREOTIDE ACETATE 100 MCG/ML VIAL IVP SCH ×3 (08:10→22:27)
[2022-12-15] MEDS: PANTOPRAZOLE SODIUM 40 MG/VIAL IVP SCH (08:10)
[2022-12-15] MEDS: PredniSONE 10 MG TABLET PO SCH (08:10)
[2022-12-15 09:00] LABS: BAND NEUTROPHILS % (MANUAL) 7 % (0-5); LYMPHOCYTES % (MANUAL) 5 % (22-44); METAMYELOCYTES % 2 % (0-0); MONOCYTES % (MANUAL) 2 % (2-9); SEGMENTED NEUTROPHILS % 84 % (40-70)
[2022-12-15] MEDS: BUDESONIDE 0.5 MG/2 ML NEB SOLUTION NEB SCH ×2 (09:44→20:12)
[2022-12-15 11:05] VITALS: BP 107/61
[2022-12-15] MEDS: INSULIN LISPRO 100 UNITS/ML SQ PRN ×3 (11:45→21:18)
[2022-12-15 11:56] LABS: GLUCOMETER DEV NAME(LOC) 5N.1C; GLUCOSE,POINT OF CARE 157 MG/DL (70-110)
[2022-12-15 12:28] LABS: LACTIC ACID 1.4 mmol/L (0.4-2.0)
[2022-12-15] MEDS ORDERED: BARIUM SULFATE 0.1% SUSPENSION 450 ML BOTTLE ONE ×2 (13:19)
[2022-12-15 15:27] VITALS: BP 103/60
[2022-12-15] MEDS ORDERED: SODIUM CHLORIDE 0.9% 250 ML IV ONE (15:44)
[2022-12-15] MEDS: LEVOFLOXACIN 750 MG/D5% WATER 150 ML IV SCH (15:45)
[2022-12-15] MEDS ORDERED: *CLINICAL-MEROPENEM DOSING CLINICAL ONE (17:15)
[2022-12-15 19:56] LABS: GLUCOMETER DEV NAME(LOC) 5S.1B; GLUCOSE,POINT OF CARE 144 MG/DL (70-110)
[2022-12-15 20:15] VITALS: BP 108/65
[2022-12-15] MEDS: MEROPENEM 1 GM in SODIUM CHLORIDE 0.9% 100 ML IV SCH (20:27)
[2022-12-15 23:17] VITALS: BP 102/62
[2022-12-15 23:51] LABS: GLUCOMETER DEV NAME(LOC) 5S.1B; GLUCOSE,POINT OF CARE 162 MG/DL (70-110)
[2022-12-16 03:39] VITALS: BP 116/63
[2022-12-16] MEDS: ALBUTEROL SULFATE 2.5 MG/0.5 ML NEB SOLUTION NEB SCH ×6 (04:39→22:57)
[2022-12-16] MEDS: IPRATROPIUM BROMIDE 0.5 MG/2.5 ML NEB SOLUTION NEB SCH ×6 (04:39→22:57)
[2022-12-16 06:31] LABS: HEMATOCRIT 32.4 % (41-53); HEMOGLOBIN 10.4 g/dL (13.5-17.5); MEAN CORPUSCULAR HEMOGLOBIN 27.7 pg (26.0-34.0); MEAN CORPUSCULAR HGB CONC 32.2 G/dL (31.0-37.0); MEAN CORPUSCULAR VOLUME 86 fL (80-100); PLATELET COUNT (AUTO) 292 K/uL (150-450); RED BLOOD CELL COUNT(AUTO) 3.77 MIL/uL (4.50-5.90); RED CELL DISTRIBUTION WIDTH 13.5 % (11.5-14.5)
[2022-12-16 06:45] LABS: CALCIUM, TOTAL 7.7 mg/dL (8.8-10.5); CREATININE 1.17 mg/dL (0.60-1.30)
[2022-12-16 06:47] LABS: MAGNESIUM 1.9 mg/dL (1.80-2.40); PHOSPHORUS 3.1 mg/dL (2.5-4.9)
[2022-12-16 07:44] VITALS: BP 116/59
[2022-12-16] MEDS: BUDESONIDE 0.5 MG/2 ML NEB SOLUTION NEB SCH ×2 (08:10→19:41)
[2022-12-16 08:34] LABS: BAND NEUTROPHILS % (MANUAL) 15 % (0-5); LYMPHOCYTES % (MANUAL) 11 % (22-44); MONOCYTES % (MANUAL) 2 % (2-9); SEGMENTED NEUTROPHILS % 72 % (40-70)
[2022-12-16] MEDS: PANTOPRAZOLE SODIUM 40 MG/VIAL IVP SCH (08:36)
[2022-12-16] MEDS: OCTREOTIDE ACETATE 100 MCG/ML VIAL IVP SCH ×3 (08:36→20:09)
[2022-12-16] MEDS: MEROPENEM 1 GM in SODIUM CHLORIDE 0.9% 100 ML IV SCH ×2 (08:36→19:48)
[2022-12-16] MEDS: HEPARIN SODIUM,PORCINE 5,000 UNITS/ML VIAL SQ SCH ×3 (08:37→23:38)
[2022-12-16 11:30] VITALS: BP 126/62
[2022-12-16] MEDS: INSULIN LISPRO 100 UNITS/ML SQ PRN (11:41)
[2022-12-16 15:29] VITALS: BP 111/59
[2022-12-16 20:28] VITALS: BP 108/57
[2022-12-16 23:36] LABS: GLUCOMETER DEV NAME(LOC) 5S.2C; GLUCOSE,POINT OF CARE 192 MG/DL (70-110)
[2022-12-16 23:36] LABS: GLUCOMETER DEV NAME(LOC) 5S.1B; GLUCOSE,POINT OF CARE 142 MG/DL (70-110)
[2022-12-16 23:36] LABS: GLUCOMETER DEV NAME(LOC) 5S.2C; GLUCOSE,POINT OF CARE 129 MG/DL (70-110)
[2022-12-16 23:36] LABS: GLUCOMETER DEV NAME(LOC) 5S.2C; GLUCOSE,POINT OF CARE 139 MG/DL (70-110)
[2022-12-16 23:38] VITALS: BP 118/64
[2022-12-17] MEDS: ALBUTEROL SULFATE 2.5 MG/0.5 ML NEB SOLUTION NEB SCH ×5 (03:20→19:31)
[2022-12-17] MEDS: IPRATROPIUM BROMIDE 0.5 MG/2.5 ML NEB SOLUTION NEB SCH ×5 (03:20→19:31)
[2022-12-17 04:10] VITALS: BP 111/60
[2022-12-17 06:58] LABS: HEMATOCRIT 33.8 % (41-53); HEMOGLOBIN 10.6 g/dL (13.5-17.5); MEAN CORPUSCULAR HEMOGLOBIN 27.2 pg (26.0-34.0); MEAN CORPUSCULAR HGB CONC 31.3 G/dL (31.0-37.0); MEAN CORPUSCULAR VOLUME 87 fL (80-100); PLATELET COUNT (AUTO) 296 K/uL (150-450); RED BLOOD CELL COUNT(AUTO) 3.88 MIL/uL (4.50-5.90); RED CELL DISTRIBUTION WIDTH 13.7 % (11.5-14.5)
[2022-12-17 08:11] VITALS: BP 107/59
[2022-12-17] MEDS: PANTOPRAZOLE SODIUM 40 MG/VIAL IVP SCH (08:17)
[2022-12-17] MEDS: OCTREOTIDE ACETATE 100 MCG/ML VIAL IVP SCH ×3 (08:18→20:26)
[2022-12-17] MEDS: HEPARIN SODIUM,PORCINE 5,000 UNITS/ML VIAL SQ SCH ×3 (08:18→23:58)
[2022-12-17] MEDS: MEROPENEM 1 GM in SODIUM CHLORIDE 0.9% 100 ML IV SCH ×2 (08:18→20:25)
[2022-12-17] MEDS: BUDESONIDE 0.5 MG/2 ML NEB SOLUTION NEB SCH ×2 (08:27→19:31)
[2022-12-17 09:14] LABS: BAND NEUTROPHILS % (MANUAL) 27 % (0-5); LYMPHOCYTES % (MANUAL) 10 % (22-44); METAMYELOCYTES % 3 % (0-0); MONOCYTES % (MANUAL) 8 % (2-9); SEGMENTED NEUTROPHILS % 52 % (40-70)
[2022-12-17 11:58] VITALS: BP 111/60
[2022-12-17] MEDS: INSULIN LISPRO 100 UNITS/ML SQ PRN (12:30)
[2022-12-17 13:41] LABS: GLUCOMETER DEV NAME(LOC) 5S.2C; GLUCOSE,POINT OF CARE 162 MG/DL (70-110)
[2022-12-17 13:41] LABS: GLUCOMETER DEV NAME(LOC) 5S.1B; GLUCOSE,POINT OF CARE 105 MG/DL (70-110)
[2022-12-17 14:50] VITALS: BP 117/63
[2022-12-17] MEDS ORDERED: ASPI81TA87 PO (19:24)
[2022-12-17 20:01] VITALS: BP 105/45
[2022-12-17 21:32] LABS: GLUCOMETER DEV NAME(LOC) 5S.2C; GLUCOSE,POINT OF CARE 128 MG/DL (70-110)
[2022-12-17 21:32] LABS: GLUCOMETER DEV NAME(LOC) 5S.2C; GLUCOSE,POINT OF CARE 121 MG/DL (70-110)
[2022-12-17 23:48] VITALS: BP 117/60
[2022-12-18] MEDS: ALBUTEROL SULFATE 2.5 MG/0.5 ML NEB SOLUTION NEB SCH ×4 (03:19→20:00)
[2022-12-18] MEDS: IPRATROPIUM BROMIDE 0.5 MG/2.5 ML NEB SOLUTION NEB SCH ×4 (03:19→20:00)
[2022-12-18 05:27] VITALS: BP 131/66
[2022-12-18 06:01] LABS: HEMATOCRIT 33.9 % (41-53); HEMOGLOBIN 10.7 g/dL (13.5-17.5); MEAN CORPUSCULAR HEMOGLOBIN 27.3 pg (26.0-34.0); MEAN CORPUSCULAR HGB CONC 31.5 G/dL (31.0-37.0); MEAN CORPUSCULAR VOLUME 87 fL (80-100); PLATELET COUNT (AUTO) 311 K/uL (150-450); RED BLOOD CELL COUNT(AUTO) 3.91 MIL/uL (4.50-5.90); RED CELL DISTRIBUTION WIDTH 13.7 % (11.5-14.5)
[2022-12-18 06:20] LABS: ANION GAP 8 mmol/L (8-16); CALCIUM, TOTAL 7.6 mg/dL (8.8-10.5); CARBON DIOXIDE 26 mmol/L (22-29); CHLORIDE 107 mmol/L (98-107); CREATININE 1.08 mg/dL (0.60-1.30); GLOMERULAR FILTR. RATE CALC > 60 mL/min (>60); GLUCOSE,RANDOM 133 mg/dL (70-110); POTASSIUM 4.3 mmol/L (3.5-5.1); SODIUM SERUM 141 mmol/L (136-145)
[2022-12-18 06:24] LABS: BAND NEUTROPHILS % (MANUAL) 21 % (0-5); LYMPHOCYTES % (MANUAL) 10 % (22-44); MONOCYTES % (MANUAL) 5 % (2-9); SEGMENTED NEUTROPHILS % 64 % (40-70)
[2022-12-18 07:46] VITALS: BP 115/62
[2022-12-18] MEDS: HEPARIN SODIUM,PORCINE 5,000 UNITS/ML VIAL SQ SCH ×2 (08:29→16:25)
[2022-12-18] MEDS: MEROPENEM 1 GM in SODIUM CHLORIDE 0.9% 100 ML IV SCH ×2 (08:29→20:05)
[2022-12-18] MEDS: OCTREOTIDE ACETATE 100 MCG/ML VIAL IVP SCH ×3 (08:29→20:05)
[2022-12-18] MEDS: PANTOPRAZOLE SODIUM 40 MG/VIAL IVP SCH (08:30)
[2022-12-18] MEDS: BUDESONIDE 0.5 MG/2 ML NEB SOLUTION NEB SCH ×2 (08:35→20:00)
[2022-12-18] MEDS ORDERED: SODIUM PHOS,M-BASIC-D-BASIC 30 MMOL in DEXTROSE 5%-WATER 250 ML IV ONE (09:30)
[2022-12-18 11:03] VITALS: BP 112/63
[2022-12-18 15:24] VITALS: BP 105/57
[2022-12-18 20:16] VITALS: BP 114/60
[2022-12-18] MEDS: INSULIN LISPRO 100 UNITS/ML SQ PRN (20:55)
[2022-12-19] MEDS: HEPARIN SODIUM,PORCINE 5,000 UNITS/ML VIAL SQ SCH ×3 (00:07→16:38)
[2022-12-19 00:34] VITALS: BP 110/59
[2022-12-19] MEDS: ALBUTEROL SULFATE 2.5 MG/0.5 ML NEB SOLUTION NEB SCH ×4 (02:10→20:19)
[2022-12-19] MEDS: IPRATROPIUM BROMIDE 0.5 MG/2.5 ML NEB SOLUTION NEB SCH ×4 (02:10→20:19)
[2022-12-19 02:16] LABS: GLUCOMETER DEV NAME(LOC) 5S.1B; GLUCOSE,POINT OF CARE 124 MG/DL (70-110)
[2022-12-19 02:16] LABS: GLUCOMETER DEV NAME(LOC) 5S.1B; GLUCOSE,POINT OF CARE 148 MG/DL (70-110)
[2022-12-19 02:16] LABS: GLUCOMETER DEV NAME(LOC) 5S.1B; GLUCOSE,POINT OF CARE 144 MG/DL (70-110)
[2022-12-19 02:16] LABS: GLUCOMETER DEV NAME(LOC) 5S.1B; GLUCOSE,POINT OF CARE 138 MG/DL (70-110)
[2022-12-19 04:30] VITALS: BP 108/55
[2022-12-19 07:41] LABS: GLUCOMETER DEV NAME(LOC) 5S.2C; GLUCOSE,POINT OF CARE 115 MG/DL (70-110)
[2022-12-19] MEDS: MEROPENEM 1 GM in SODIUM CHLORIDE 0.9% 100 ML IV SCH ×2 (08:18→20:02)
[2022-12-19] MEDS: OCTREOTIDE ACETATE 100 MCG/ML VIAL IVP SCH ×3 (08:24→20:03)
[2022-12-19] MEDS: BUDESONIDE 0.5 MG/2 ML NEB SOLUTION NEB SCH ×2 (08:24→20:19)
[2022-12-19] MEDS: PANTOPRAZOLE SODIUM 40 MG/VIAL IVP SCH (08:27)
[2022-12-19 08:47] VITALS: BP 117/64
[2022-12-19 11:02] VITALS: BP 122/68
[2022-12-19 12:36] LABS: GLUCOMETER DEV NAME(LOC) 5S.1B; GLUCOSE,POINT OF CARE 94 MG/DL (70-110)
[2022-12-19 15:03] VITALS: BP_SYST 103; BP_SYST 98; BP_DIAS 58; BP_DIAS 63
[2022-12-19] MEDS ORDERED: SODIUM CHLORIDE 0.9% 500 ML IV ONE (20:12)
[2022-12-19 20:14] VITALS: BP 104/59
[2022-12-19] MEDS: INSULIN LISPRO 100 UNITS/ML SQ PRN (20:25)
[2022-12-19 21:26] LABS: GLUCOMETER DEV NAME(LOC) 5S.2C; GLUCOSE,POINT OF CARE 120 MG/DL (70-110)
[2022-12-19 21:26] LABS: GLUCOMETER DEV NAME(LOC) 5S.2C; GLUCOSE,POINT OF CARE 175 MG/DL (70-110)
[2022-12-20] MEDS: HEPARIN SODIUM,PORCINE 5,000 UNITS/ML VIAL SQ SCH ×4 (00:09→23:57)
[2022-12-20 00:33] VITALS: BP 116/65
[2022-12-20] MEDS: IPRATROPIUM BROMIDE 0.5 MG/2.5 ML NEB SOLUTION NEB SCH ×4 (03:02→19:49)
[2022-12-20] MEDS: ALBUTEROL SULFATE 2.5 MG/0.5 ML NEB SOLUTION NEB SCH ×4 (03:02→19:49)
[2022-12-20 04:19] VITALS: BP 111/60
[2022-12-20] MEDS: BUDESONIDE 0.5 MG/2 ML NEB SOLUTION NEB SCH ×2 (06:39→19:49)
[2022-12-20 07:07] LABS: HEMATOCRIT 31.4 % (41-53); HEMOGLOBIN 9.9 g/dL (13.5-17.5); MEAN CORPUSCULAR HEMOGLOBIN 27.3 pg (26.0-34.0); MEAN CORPUSCULAR HGB CONC 31.6 G/dL (31.0-37.0); MEAN CORPUSCULAR VOLUME 87 fL (80-100); PLATELET COUNT (AUTO) 260 K/uL (150-450); RED BLOOD CELL COUNT(AUTO) 3.63 MIL/uL (4.50-5.90); RED CELL DISTRIBUTION WIDTH 14.2 % (11.5-14.5)
[2022-12-20 07:12] LABS: BAND NEUTROPHILS % (MANUAL) 21 % (0-5); LYMPHOCYTES % (MANUAL) 9 % (22-44); MONOCYTES % (MANUAL) 8 % (2-9); SEGMENTED NEUTROPHILS % 62 % (40-70)
[2022-12-20 07:22] LABS: ALANINE AMINOTRANSFERASE 16 U/L (12-78); ALBUMIN 1.6 g/dL (3.4-5.0); ALKALINE PHOSPHATASE 64 U/L (46-116); ANION GAP 2 mmol/L (8-16); ASPARTATE AMINOTRANSFERASE 21 U/L (15-37); BILIRUBIN,TOTAL 0.6 mg/dL (0.1-1.0); CALCIUM, TOTAL 7.8 mg/dL (8.8-10.5); CARBON DIOXIDE 30 mmol/L (22-29); CHLORIDE 107 mmol/L (98-107); CREATININE 1.09 mg/dL (0.60-1.30); GLOMERULAR FILTR. RATE CALC > 60 mL/min (>60); GLUCOSE,RANDOM 127 mg/dL (70-110); POTASSIUM 4.3 mmol/L (3.5-5.1); SODIUM SERUM 139 mmol/L (136-145)
[2022-12-20 07:35] VITALS: BP 123/66
[2022-12-20] MEDS: PANTOPRAZOLE SODIUM 40 MG/VIAL IVP SCH (08:26)
[2022-12-20] MEDS: OCTREOTIDE ACETATE 100 MCG/ML VIAL IVP SCH ×3 (08:26→20:09)
[2022-12-20] MEDS: MEROPENEM 1 GM in SODIUM CHLORIDE 0.9% 100 ML IV SCH ×2 (08:27→20:09)
[2022-12-20] MEDS: MULTIVITAMINS WITH MINERALS, THERAPEUTIC TABLET PO SCH (08:27)
[2022-12-20 08:31] LABS: GLUCOMETER DEV NAME(LOC) 5S.2C; GLUCOSE,POINT OF CARE 121 MG/DL (70-110)
[2022-12-20 11:38] VITALS: BP 109/60
[2022-12-20] MEDS: INSULIN LISPRO 100 UNITS/ML SQ PRN ×2 (13:14→20:31)
[2022-12-20 13:21] LABS: GLUCOMETER DEV NAME(LOC) 5S.1B; GLUCOSE,POINT OF CARE 149 MG/DL (70-110)
[2022-12-20] MEDS ORDERED: CASPOFUNGIN ACETATE 70 MG in SODIUM CHLORIDE 0.9% 250 ML IV ONE (14:30)
[2022-12-20] MEDS ORDERED: FLUCONAZOLE 400 MG/NACL ISOOSM 200 ML IV SCH (15:00)
[2022-12-20] MEDS ORDERED: FLUCONAZOLE IV ONE (15:00)
[2022-12-20] MEDS ORDERED: NACL ISOOSM IV ONE (15:00)
[2022-12-20 15:28] VITALS: BP 111/63
[2022-12-20] MEDS: FLUCONAZOLE 400 MG/NACL ISOOSM 200 ML IV SCH ×2 (15:44→18:01)
[2022-12-20 18:17] LABS: GLUCOMETER DEV NAME(LOC) 5S.1B; GLUCOSE,POINT OF CARE 122 MG/DL (70-110)
[2022-12-20 20:00] VITALS: BP 128/67
[2022-12-20 22:31] LABS: GLUCOMETER DEV NAME(LOC) 5S.2C; GLUCOSE,POINT OF CARE 146 MG/DL (70-110)
[2022-12-21 01:44] VITALS: BP 125/68
[2022-12-21] MEDS: ALBUTEROL SULFATE 2.5 MG/0.5 ML NEB SOLUTION NEB SCH ×4 (03:24→20:06)
[2022-12-21] MEDS: IPRATROPIUM BROMIDE 0.5 MG/2.5 ML NEB SOLUTION NEB SCH ×4 (03:24→20:06)
[2022-12-21 07:20] VITALS: BP 127/68
[2022-12-21] MEDS: HEPARIN SODIUM,PORCINE 5,000 UNITS/ML VIAL SQ SCH ×3 (08:09→23:53)
[2022-12-21] MEDS: MEROPENEM 1 GM in SODIUM CHLORIDE 0.9% 100 ML IV SCH ×2 (08:09→20:35)
[2022-12-21] MEDS: MULTIVITAMINS WITH MINERALS, THERAPEUTIC TABLET PO SCH (08:09)
[2022-12-21] MEDS: PANTOPRAZOLE SODIUM 40 MG/VIAL IVP SCH (08:09)
[2022-12-21] MEDS: OCTREOTIDE ACETATE 100 MCG/ML VIAL IVP SCH ×3 (08:10→20:35)
[2022-12-21] MEDS: BUDESONIDE 0.5 MG/2 ML NEB SOLUTION NEB SCH ×2 (09:30→20:06)
[2022-12-21 10:26] LABS: ANION GAP 5 mmol/L (8-16); BASOPHILS % (AUTO) 0.2 % (0.0-2.0); CALCIUM, TOTAL 7.6 mg/dL (8.8-10.5); CARBON DIOXIDE 27 mmol/L (22-29); CHLORIDE 105 mmol/L (98-107); CREATININE 1.09 mg/dL (0.60-1.30); EOSINOPHILS % (AUTO) 0.7 % (1.0-6.0); GLOMERULAR FILTR. RATE CALC > 60 mL/min (>60); GLUCOSE,RANDOM 190 mg/dL (70-110); HEMOGLOBIN 10.1 g/dL (13.5-17.5); LYMPHOCYTES # (AUTO) 0.9 K/uL (1.0-4.8); LYMPHOCYTES % (AUTO) 6.3 % (22.0-44.0); MEAN CORPUSCULAR HEMOGLOBIN 27.7 pg (26.0-34.0); MEAN CORPUSCULAR HGB CONC 31.7 G/dL (31.0-37.0); MEAN CORPUSCULAR VOLUME 88 fL (80-100); MONOCYTES # (AUTO) 1.3 K/uL (0.1-1.0); MONOCYTES % (AUTO) 9.6 % (2.0-9.0); NEUTROPHILS # (AUTO) 11.6 K/uL (1.8-7.7); NEUTROPHILS % (AUTO) 83.2 % (40.0-70.0); PLATELET COUNT (AUTO) 245 K/uL (150-450); RED BLOOD CELL COUNT(AUTO) 3.66 MIL/uL (4.50-5.90); RED CELL DISTRIBUTION WIDTH 13.9 % (11.5-14.5); SODIUM SERUM 137 mmol/L (136-145)
[2022-12-21 10:32] LABS: ALANINE AMINOTRANSFERASE 17 U/L (12-78); ALBUMIN 1.5 g/dL (3.4-5.0); ALKALINE PHOSPHATASE 62 U/L (46-116); ASPARTATE AMINOTRANSFERASE 20 U/L (15-37); BILIRUBIN,TOTAL 0.5 mg/dL (0.1-1.0); TOTAL PROTEIN, SERUM 5.1 g/dL (6.4-8.2)
[2022-12-21 11:26] VITALS: BP 116/65
[2022-12-21] MEDS: INSULIN LISPRO 100 UNITS/ML SQ PRN ×2 (11:41→17:44)
[2022-12-21] MEDS ORDERED: CASPOFUNGIN ACETATE 50 MG in SODIUM CHLORIDE 0.9% 250 ML IV SCH (15:00)
[2022-12-21] MEDS: FLUCONAZOLE 200 MG/NACL ISOOSM 100 ML IV SCH (15:33)
[2022-12-21 16:20] VITALS: BP 117/66
[2022-12-21] MEDS ORDERED: HYDR25TA PO (17:19)
[2022-12-21 19:40] VITALS: BP 113/68
[2022-12-21 20:36] LABS: GLUCOMETER DEV NAME(LOC) 5N.1C; GLUCOSE,POINT OF CARE 149 MG/DL (70-110)
[2022-12-22] VITALS (7 sets, daily range): BP systolic 107–122; BP diastolic 60–71
[2022-12-22 01:21] LABS: GLUCOMETER DEV NAME(LOC) 5S.2C; GLUCOSE,POINT OF CARE 123 MG/DL (70-110)
[2022-12-22 01:21] LABS: GLUCOMETER DEV NAME(LOC) 5S.2C; GLUCOSE,POINT OF CARE 161 MG/DL (70-110)
[2022-12-22 01:21] LABS: GLUCOMETER DEV NAME(LOC) 5N.1C; GLUCOSE,POINT OF CARE 114 MG/DL (70-110)
[2022-12-22 06:51] LABS: ALANINE AMINOTRANSFERASE 14 U/L (12-78); ALBUMIN 1.5 g/dL (3.4-5.0); ALKALINE PHOSPHATASE 62 U/L (46-116); ANION GAP 7 mmol/L (8-16); ASPARTATE AMINOTRANSFERASE 20 U/L (15-37); BILIRUBIN,TOTAL 0.6 mg/dL (0.1-1.0); CALCIUM, TOTAL 7.7 mg/dL (8.8-10.5); CARBON DIOXIDE 28 mmol/L (22-29); CHLORIDE 107 mmol/L (98-107); CREATININE 1.02 mg/dL (0.60-1.30); GLOMERULAR FILTR. RATE CALC > 60 mL/min (>60); GLUCOSE,RANDOM 138 mg/dL (70-110); POTASSIUM 4.2 mmol/L (3.5-5.1); SODIUM SERUM 142 mmol/L (136-145); TOTAL PROTEIN, SERUM 5.2 g/dL (6.4-8.2)
[2022-12-22 07:03] LABS: HEMATOCRIT 32.4 % (41-53); HEMOGLOBIN 10.2 g/dL (13.5-17.5); MEAN CORPUSCULAR HEMOGLOBIN 27.7 pg (26.0-34.0); MEAN CORPUSCULAR HGB CONC 31.5 G/dL (31.0-37.0); MEAN CORPUSCULAR VOLUME 88 fL (80-100); PLATELET COUNT (AUTO) 256 K/uL (150-450); RED BLOOD CELL COUNT(AUTO) 3.69 MIL/uL (4.50-5.90); RED CELL DISTRIBUTION WIDTH 14.3 % (11.5-14.5)
[2022-12-22 08:21] LABS: GLUCOMETER DEV NAME(LOC) 5N.2C; GLUCOSE,POINT OF CARE 130 MG/DL (70-110)
[2022-12-22 08:49] LABS: BAND NEUTROPHILS % (MANUAL) 5 % (0-5); LYMPHOCYTES % (MANUAL) 10 % (22-44); MONOCYTES % (MANUAL) 11 % (2-9); SEGMENTED NEUTROPHILS % 74 % (40-70)
[2022-12-22 08:50] LABS: WBC MORPHOLOGY TOXIC GRANULATION
[2022-12-22] MEDS: MEROPENEM 1 GM in SODIUM CHLORIDE 0.9% 100 ML IV SCH ×2 (09:45→20:26)
[2022-12-22] MEDS: OCTREOTIDE ACETATE 100 MCG/ML VIAL IVP SCH ×3 (09:45→20:26)
[2022-12-22] MEDS: HEPARIN SODIUM,PORCINE 5,000 UNITS/ML VIAL SQ SCH ×3 (09:46→23:29)
[2022-12-22] MEDS: PANTOPRAZOLE SODIUM 40 MG/VIAL IVP SCH (09:46)
[2022-12-22] MEDS: MULTIVITAMINS WITH MINERALS, THERAPEUTIC TABLET PO SCH (09:46)
[2022-12-22] MEDS: BUDESONIDE 0.5 MG/2 ML NEB SOLUTION NEB SCH ×2 (10:21→19:50)
[2022-12-22] MEDS: IPRATROPIUM BROMIDE 0.5 MG/2.5 ML NEB SOLUTION NEB SCH ×3 (10:22→19:50)
[2022-12-22] MEDS: ALBUTEROL SULFATE 2.5 MG/0.5 ML NEB SOLUTION NEB SCH ×3 (10:22→19:50)
[2022-12-22 14:56] LABS: GLUCOMETER DEV NAME(LOC) 5N.2C; GLUCOSE,POINT OF CARE 129 MG/DL (70-110)
[2022-12-22] MEDS: FLUCONAZOLE 200 MG/NACL ISOOSM 100 ML IV SCH (15:34)
[2022-12-22 20:22] LABS: GLUCOMETER DEV NAME(LOC) 5N.2C; GLUCOSE,POINT OF CARE 113 MG/DL (70-110)
[2022-12-22] MEDS: INSULIN LISPRO 100 UNITS/ML SQ PRN (20:27)
[2022-12-23 00:17] VITALS: BP 105/59
[2022-12-23] MEDS: ALBUTEROL SULFATE 2.5 MG/0.5 ML NEB SOLUTION NEB SCH ×4 (02:40→19:37)
[2022-12-23] MEDS: IPRATROPIUM BROMIDE 0.5 MG/2.5 ML NEB SOLUTION NEB SCH ×4 (02:40→19:37)
[2022-12-23 04:36] LABS: GLUCOMETER DEV NAME(LOC) 5S.1B; GLUCOSE,POINT OF CARE 144 MG/DL (70-110)
[2022-12-23 05:20] VITALS: BP 109/69
[2022-12-23 05:56] LABS: GLUCOMETER DEV NAME(LOC) 5N.1C; GLUCOSE,POINT OF CARE 123 MG/DL (70-110)
[2022-12-23 07:17] LABS: BASOPHILS % (AUTO) 0.3 % (0.0-2.0); HEMATOCRIT 33.7 % (41-53); HEMOGLOBIN 10.4 g/dL (13.5-17.5); LYMPHOCYTES # (AUTO) 1.2 K/uL (1.0-4.8); LYMPHOCYTES % (AUTO) 7.8 % (22.0-44.0); MEAN CORPUSCULAR HEMOGLOBIN 27.1 pg (26.0-34.0); MEAN CORPUSCULAR HGB CONC 30.8 G/dL (31.0-37.0); MEAN CORPUSCULAR VOLUME 88 fL (80-100); MONOCYTES # (AUTO) 1.4 K/uL (0.1-1.0); MONOCYTES % (AUTO) 9.6 % (2.0-9.0); NEUTROPHILS # (AUTO) 12.2 K/uL (1.8-7.7); NEUTROPHILS % (AUTO) 81.3 % (40.0-70.0); PLATELET COUNT (AUTO) 253 K/uL (150-450); RED BLOOD CELL COUNT(AUTO) 3.83 MIL/uL (4.50-5.90); RED CELL DISTRIBUTION WIDTH 14.7 % (11.5-14.5)
[2022-12-23 07:34] LABS: ANION GAP 9 mmol/L (8-16); CALCIUM, TOTAL 7.8 mg/dL (8.8-10.5); CARBON DIOXIDE 25 mmol/L (22-29); CHLORIDE 106 mmol/L (98-107); CREATININE 0.98 mg/dL (0.60-1.30); GLOMERULAR FILTR. RATE CALC > 60 mL/min (>60); GLUCOSE,RANDOM 126 mg/dL (70-110); SODIUM SERUM 140 mmol/L (136-145)
[2022-12-23 08:07] VITALS: BP 107/63
[2022-12-23] MEDS: BUDESONIDE 0.5 MG/2 ML NEB SOLUTION NEB SCH ×2 (08:10→21:06)
[2022-12-23] MEDS: PANTOPRAZOLE SODIUM 40 MG/VIAL IVP SCH (08:59)
[2022-12-23] MEDS: MULTIVITAMINS WITH MINERALS, THERAPEUTIC TABLET PO SCH (09:00)
[2022-12-23] MEDS: HEPARIN SODIUM,PORCINE 5,000 UNITS/ML VIAL SQ SCH ×2 (09:00→16:51)
[2022-12-23] MEDS: MEROPENEM 1 GM in SODIUM CHLORIDE 0.9% 100 ML IV SCH ×2 (09:02→20:21)
[2022-12-23] MEDS: OCTREOTIDE ACETATE 100 MCG/ML VIAL IVP SCH ×3 (09:04→20:21)
[2022-12-23 11:45] VITALS: BP 118/76
[2022-12-23 15:30] VITALS: BP 121/67
[2022-12-23] MEDS: FLUCONAZOLE 200 MG/NACL ISOOSM 100 ML IV SCH (15:53)
[2022-12-23 20:00] VITALS: BP 110/69
[2022-12-23] MEDS: INSULIN LISPRO 100 UNITS/ML SQ PRN (20:22)
[2022-12-23 21:41] LABS: GLUCOMETER DEV NAME(LOC) 5N.1C; GLUCOSE,POINT OF CARE 192 MG/DL (70-110)
[2022-12-24 01:41] LABS: GLUCOMETER DEV NAME(LOC) 5S.2C; GLUCOSE,POINT OF CARE 134 MG/DL (70-110)
[2022-12-24 01:41] LABS: GLUCOMETER DEV NAME(LOC) 5S.2C; GLUCOSE,POINT OF CARE 133 MG/DL (70-110)
== END 2022-12-23 21:55 | DRG 871 ==
LOC: EMS 17:14 → AHU 23:11 → 5S 12-01 09:31
PROVIDERS: ADMIT Internal Medicine; ATTEND Internal Medicine
PROC: 0W9H3ZZ Drainage of Retroperitoneum, Percutaneous Approach (ICD-10-PCS; principal; 2022-12-10)
DX: A41.9 Sepsis, unspecified organism (principal); E43 Unspecified severe protein-calorie malnutrition; J96.01 Acute respiratory failure with hypoxia; K68.19 Other retroperitoneal abscess; K85.11 Biliary acute pancreatitis with uninfected necrosis; N17.9 Acute kidney failure, unspecified; R64 Cachexia; E87.0 Hyperosmolality and hypernatremia; K57.20 Diverticulitis of large intestine with perforation and abscess without bleeding; E87.1 Hypo-osmolality and hyponatremia; J90 Pleural effusion, not elsewhere classified; R65.20 Severe sepsis without septic shock; I71.21 Aneurysm of the ascending aorta, without rupture; E86.0 Dehydration; E11.65 Type 2 diabetes mellitus with hyperglycemia; E83.39 Other disorders of phosphorus metabolism; E87.6 Hypokalemia; K40.90 Unilateral inguinal hernia, without obstruction or gangrene, not specified as recurrent; I10 Essential (primary) hypertension; N40.1 Benign prostatic hyperplasia with lower urinary tract symptoms; J44.9 Chronic obstructive pulmonary disease, unspecified; F17.210 Nicotine dependence, cigarettes, uncomplicated; Z20.822 Contact with and (suspected) exposure to COVID-19; Z79.51 Long term (current) use of inhaled steroids; Z92.3 Personal history of irradiation; Z90.49 Acquired absence of other specified parts of digestive tract; Z68.22 Body mass index [BMI] 22.0-22.9, adult
CPT/HCPCS: 36600; 49061; 71045; 71250; 74176; 76770; 78226; 80048; 80053; 81001; 82150; 82570; 82805; 82962; 83605; 83690; 83735; 83880; 84100; 84145; 84156; 84300; 84484; 84540; 85025; 85610; 87040; 87070; 87075; 87101; 87186; 87205; 92526; 92610; 93005; 93306; 94640; 97110; 97162; 97163; 97530; 99291; A9537; C9113; G0378; J0131; J0360; J0637; J1170; J1450; J1644; J1940; J1956; J2185; J2250; J2270; J2310; J2354; J2543; J2920; J3010; J3480; J3490; J7030; J7040; J7050; J7060; J7120; Q9967; 36415-L1; 36415-TC; J7512; J7613; X7700; Z7610